=== PATIENT | male | born 1955 | race Caucasian/White ===

== ENCOUNTER → 2017-12-09 09:26 | Outpatient (CLI) | payer OTHER, SELFPAY ==
[2017-12-09 09:39] LABS: Bacteria Urine None Seen; RBC Urine None Seen (0-5/HPF); WBC Urine None Seen (0-5/HPF)
[2017-12-09 10:00] LABS: Add Manual Diff / Slide Review NO; Basophils Percent Auto 1.3 % (0-2); Eosinophils Percent Auto 3.9 % (2-4); Hematocrit 38.1 % (41-53); Hemoglobin 13.2 g/dL (13.5-17.5); Mean Corpuscular HGB Conc 34.7 % (30-36); Mean Corpuscular Hemoglobin 31.9 PG (26-34); Monocytes Percent Auto 7.2 % (3-14); Neutrophils Absolute Auto 6500 /uL (3000-5900); Neutrophils Percent Auto 70.6 % (50-75); Platelet Count 323 X10^3/uL (150-400); Red Blood Cell Count 4.15 X10^6/uL (4.5-5.9); Red Cell Distribution Width 13.4 % (11.6-14.8); White Blood Cell Count 9.2 X10^3/uL (4.5-11.0)
[2017-12-09 10:38] LABS: Alanine Aminotransferase 30 IU/L (21-72); Albumin 4.1 g/dL (3.5-5.0); Albumin Globulin Ratio 1.1 (1.0-2.8); Alkaline Phosphatase 74 U/L (38-126); Aspartate Aminotransferase 34 IU/L (17-59); BUN Creatinine Ratio 31.7 (6-22); Bilirubin Total 0.5 mg/dL (0.2-1.3); Blood Urea Nitrogen 19 mg/dL (9-20); Calcium 9.7 mg/dL (8.4-10.2); Carbon Dioxide 33 mmol/L (22-32); Chloride 98 mmol/L (98-107); Cholesterol 191 mg/dL (140-199); Estimated Glomerular Filt Rate > 60.0 mL/min (>60); Globulin 3.7 g/dL (1.7-4.1); Glucose 93 mg/dL (80-110); HDL Cholesterol 48 mg/dL (40-60); HEMOLYSIS < 15 (0-50); LDL Cholesterol Calculated 131 mg/dL (<100); Potassium 4.7 mmol/L (3.4-5.1); Sodium 139 mmol/L (137-145); Total Protein 7.8 g/dL (6.3-8.2); Triglycerides 61 mg/dL (35-150)
[2017-12-09 10:47] LABS: Appearance Urine UA CLEAR; Bilirubin Urine UA NEGATIVE (NEGATIVE); Color Urine UA YELLOW; Glucose Urine UA NEGATIVE (Normal); Ketones Urine UA NEGATIVE (NEGATIVE); Leukocyte Esterase Urine UA NEGATIVE (NEGATIVE); Nitrite Urine UA Negative (Negative); Occult Blood Urine UA NEGATIVE (Negative); Protein Urine UA NEGATIVE (Negative); Specific Gravity Urine UA 1.015 (1.000-1.035); Urobilinogen Urine UA 0.2 E.U./dL (0.2); pH Urine UA 7.5 (4.5-8.0)
[2017-12-09 10:55] LABS: Amorphous Sediment Urine 2+; Culture Indicated Urine Cult Not Indicated; Free T3, Triiodothyronine Free 3.67 pg/mL (2.77-5.27); Free T4, Direct Thyroxine 1.66 ng/dL (0.78-2.19)
[2017-12-09 11:04] LABS: Prostate Specific Antigen Scrn 1.15 ng/mL (0.1-4.0)
[2017-12-09 11:09] LABS: Thyroid Stimulating Hormone 5.68 uIU/mL (0.47-4.68)
== END ==
PROVIDERS: PCP Family Medicine; Visit Provider Family Medicine
DX: Z51.81 Encounter for therapeutic drug level monitoring (principal); E03.9 Hypothyroidism, unspecified; I10 Essential (primary) hypertension; Z12.5 Encounter for screening for malignant neoplasm of prostate
CPT/HCPCS: 36415; 80053; 80061; 81001; 84439; 84443; 84481; 85025; G0103

== ENCOUNTER → 2017-12-16 10:11 | Outpatient (CLI) | payer OTHER, SELFPAY ==
[2017-12-18 14:47] LABS: Fecal Immunochemical Test NOT DETECTED
== END ==
PROVIDERS: PCP Family Medicine; Visit Provider Family Medicine
DX: Z00.00 Encounter for general adult medical examination without abnormal findings (principal); Z12.11 Encounter for screening for malignant neoplasm of colon
CPT/HCPCS: 82274

== ENCOUNTER → 2018-08-19 08:24 | Outpatient (CLI) | payer OTHER, SELFPAY ==
--- NOTE | 2018-08-19 08:25 | DI.US.S_ITS ---
PROCEDURE: US SCROTUM INDICATIONS: scrotal swelling TECHNIQUE: Real-time scanning was performed of the scrotum and testicles, with image documentation. Color and pulse Doppler interrogation was performed of both testicles. COMPARISON: None. FINDINGS: Right: Testicle is normal in size at 4.5 x 3.1 x 3.4 cm, and homogenous in echotexture. Epididymis is normal in overall size and morphology. No varicoceles. Overlying scrotal skin is normal in thickness. There is a prominent right-sided hydrocele. Left: Testicle is normal in size at 4.6 x 3.0 x 2.2 cm, and homogeneous in echotexture. Epididymis is normal in overall size and morphology. No varicoceles. Overlying scrotal skin is normal in thickness. There is a prominent left-sided hydrocele. Doppler: Color and pulse Doppler demonstrate normal and symmetric arterial flow in both testicles. Other: Incidental note is made of a fat-containing right inguinal hernia. No bowel is seen extending into this hernia. The neck of the hernia measures 1.2 cm. IMPRESSION: 1. Prominent bilateral scrotal hydroceles. 2. No evidence of testicular torsion, testicular mass, or epididymal orchitis. 3. Moderate-sized fat containing right inguinal hernia. Dictated by: Syed Teague M.D. on 08/19/2018 at 9:48 Approved by: Syed Teague M.D. on 08/19/2018 at 9:51
== END ==
PROVIDERS: PCP Family Medicine; Visit Provider Family Medicine
DX: N50.89 Other specified disorders of the male genital organs (principal); K40.90 Unilateral inguinal hernia, without obstruction or gangrene, not specified as recurrent; N43.3 Hydrocele, unspecified
CPT/HCPCS: 76870

== ENCOUNTER 2018-09-09 06:17 | Day surgery (SDC) | payer OTHER, SELFPAY ==
[2018-09-08 07:57] VITALS: BMI 24.3
[2018-09-09] VITALS (11 sets, daily range): BP systolic 110–181; BP diastolic 64–86; PULSE 70–78; RESP 11–20; TEMP 36.7–37.3; O2SAT 94–98; BMI 24.3
[2018-09-09] MEDS: LACTATED RINGERS 1,000 ML 42 ML IV (07:39)
[2018-09-09] MEDS: MIDAZOLAM 2 MG/2 ML VIAL IV (07:39)
--- NOTE | 2018-09-09 07:41 | PM.PREOP ---
Pre-operative Note Interval Note History & Physical reviewed/Exam performed by Physician: Yes Changes to H&P: No H&P completed within 30 days and has changed as indicated here:: Patient seen and examined in the preoperative area. Marked accordingly for surgery. Proceed today with open right inguinal hernia repair and repair of hydrocele as planned. History physical examination has not changed from August 27, 2018.
[2018-09-09] MEDS: CLINDAMYCIN 900 MG/50 ML PIGGYBACK 50 MG IV (07:43)
--- NOTE | 2018-09-09 08:11 | SUR.OPER ---
Supine on padded OR bed, head on pillow, arms secured on padded arm boards at <90 degrees abduction, legs uncrossed, safety belt at thigh, tape over blanket over lower legs.
[2018-09-09] MEDS: BUPIVACAINE 0.5% (PF) VIAL 30 ML INJ (08:23)
[2018-09-09] MEDS: LIDOCAINE 1% W/EPI INJ 20 ML INJ (08:23)
[2018-09-09] MEDS: CEFAZOLIN 1 GM VIAL IV (08:28)
[2018-09-09] MEDS: fentaNYL 100 MCG/2 ML INJ 50 MCG IV ×2 (09:55→10:08)
[2018-09-09] MEDS: HYDROMORPHONE 2 MG INJ 0.25 MG IV ×5 (10:00→10:20)
[2018-09-09] MEDS: OXYCODONE IR 5 MG TABLET PO ×2 (10:20→10:52)
--- NOTE | 2018-09-09 11:39 | SUR.PHASEII ---
PT EXPERIENCING NUMBNESS AND WEAKNESS IN HIS RIGHT LEG, DR YOUNG IS AWARE OF THIS AND STATES THIS IS NORMAL AND DUE TO THE LOCAL ANESTHETIC, PT INSTRUCTED TO USE ASSISTANCE WITH AMBULATION AND MOVING. PT STATING HE HAS HELP AND ASSISTANCE AT HOME. D/C INSTRUCTIONS REVIEWED WITH PT AND HIS SISTER WITH VERBALIZED UNDERSTANDING.
--- NOTE | 2018-09-09 11:55 | PM.OP.1 ---
Operative Date/Time/Diagnoses Date of procedure: 09/09/18 Time of procedure: 11:56 Pre-op diagnosis: Symptomatic right inguinal hernia and right noncommunicating hydrocele Post-op diagnosis: same Procedure & Clinicians Procedure: 1. Open repair of right indirect inguinal hernia with mesh 2. Open repair of right noncommunicating hydrocele Same procedure as scheduled: Yes Indications: 63-year-old male who presented with painful right inguinal mass in conjunction with significant fluid surrounding the right testicle. Examination and evaluation were consistent with hydrocele and hernia. Open repair was recommended. Surgeon: Nikko Arambula Click Yes if Unassisted: Yes Anesthesia Type: General Operative Notes Findings: 1. Moderate-sized right indirect inguinal hernia 2. No evidence of right direct hernia 3. Intact ilioinguinal nerve throughout the case 4. Noncommunicating large hydrocele right testicle 5. Testicles in descended position in the scrotum bilaterally at the conclusion of the case Closure Type: primary Specimen(s): none sent Prosthetic devices, grafts, tissues, transplants, or devices: Small polypropylene Pro Loop mesh plug and onlay patch right inguinal canal Applied: other (Mesh as above) Estimated Blood Loss (mL): 25 Blood products transfused: none Procedure in detail: After obtaining informed consent the patient was brought to the operating room placed supine on the table. After satisfactory induction of anesthesia the genitalia and abdomen were prepped and draped in usual sterile fashion. SCOAP time out was performed per standard protocol. Transverse inguinal incision was designed along the lower aspect of the inguinal canal for distance of approximately 6 cm in order to accommodate for repair of the hydrocele as well. Area was infiltrated with a 1-1 mixture 1% lidocaine with 1:100,000 epinephrine and 0.5% plain Marcaine for postoperative analgesia. Skin incision was created with 10 scalpel blade followed by the Bovie for hemostasis. Superficial epigastric vessels were clamped between hemostats, divided with Metzenbaum scissors, and secured with 3 0 Vicryl suture. Dissection proceeded down through the subcutaneous tissue to the external oblique fascia using the Bovie. A Weitlaner retractor was used to provide exposure. External oblique fascia was divided in the direction of its fibers with 15 scalpel blade followed by Metzenbaum scissors to the external inguinal ring. Edges of the fascia were secured with hemostats and elevated into the operative field. Again, the ilioinguinal nerve was identified and preserved. Blunt dissection revealed the iliopubic tract, conjoined tendon, and rectus fascia. Blunt dissection with the surgeon's fingers was then employed to elevate the spermatic cord into the operative field followed by a Dayday drain to stabilize the cord. Meticulous blunt dissection using DeBakey forceps was used to skeletonize the spermatic cord. Findings are as above. Hernia sac was opened between hemostats and noted to be empty. Sac was then opened to its apex, clamped with hemostats, ligated with Metzenbaum scissors, and secured with a 2 0 Vicryl suture ligature. Sac was then allowed to reduced easily back into the abdominal cavity. Attention was then turned to repair of the hydrocele. Meticulous blunt sharp dissection along significant connective tissue and adhesions at the external inguinal ring eventually allowed for delivery of the hydrocele and right testicle into the operative field. Great care was taken avoid injury to the testicle as well as spermatic cord structures including vessels. In order to deliver the testicle into the operative field the hydrocele actually had to be decompressed using a 10 cc syringe and 18 gauge blunt needle. Once the hydrocele had been adequately decompressed the testicle was delivered and the hydrocele was opened at its apex between hemostats. All fluid was evacuated. Fluid was clear. The sac was then dissected from its connections to the testicle using the Bovie. Tissue was discarded. Great care was taken to avoid disruption of the gubernaculum. The tunic albuginea was also left unviolated. Edges of the hydrocele sac were then oversewn with running 3 0 Vicryl suture. Hemostasis was verified. Again, great care was taken to avoid injury to the vas deferens and spermatic cord structures. Testicle was noted to be viable without evidence of any significant edema or ischemia. Again, its attachment to the gubernaculum remained intact. Testicle was then carefully replaced into the scrotum meticulously so that there was no torsion of the cord or the testicle itself. At this point mesh was brought onto the operative field and soaked in Ancef solution. Mesh plug was placed into the internal inguinal ring then secured with interrupted 2 0 Vicryl suture to adjacent connective tissue. Onlay patch was placed over the floor the inguinal canal secured with circumferential interrupted 0 Ethibond suture. Anteriorly the mesh was secured to the conjoined tendon while laterally was secured to the iliopubic tract. Medially the mesh was secured to the rectus fascia. Tails of the mesh were brought around the spermatic cord and placed deep to the external oblique fascia. Tails were secured with a single 0 Ethibond suture. Great care was taken to avoid strangulation of the cord structures. Wound was irrigated and noted to be hemostatic. Spermatic cord was replaced back into its usual anatomic position and the external oblique fascia was closed over the cord with a running 3 0 Vicryl suture. Subcutaneous tissue was reapproximated with interrupted 2 0 Vicryl suture. Skin was closed in a running subcuticular fashion with 4 0 Monocryl suture. Dermal adhesive was applied the skin. Anesthesia was reversed and patient extubated in the operating room. Again, testicles were noted to be in normal descended position bilaterally at the conclusion of the case. Patient taken recovery stable condition. Complications: none Condition: stable Disposition: PACU Plan for aftercare: 1. Discharge home 2. Follow up in surgery Clinic in 2 weeks
== END 2018-09-09 11:30 | disposition home or self-care (01) ==
PROVIDERS: PCP Family Medicine; Visit Provider Surgery
PROC: (CPT 49505; principal; 2018-09-09 07:45)
DX: K40.90 Unilateral inguinal hernia, without obstruction or gangrene, not specified as recurrent (principal); N43.3 Hydrocele, unspecified; I10 Essential (primary) hypertension; E78.5 Hyperlipidemia, unspecified; E03.9 Hypothyroidism, unspecified
CPT/HCPCS: 49505; 55040; C1781; J0690; J1100; J1170; J2250; J2405; J2704; J3010

== ENCOUNTER → 2019-03-16 09:04 | Outpatient (CLI) | payer OTHER, SELFPAY ==
[2019-03-16 09:55] LABS: Add Manual Diff / Slide Review NO; Basophils Absolute Auto 100 /uL (0-100); Eosinophils Absolute Auto 400 /uL (0-450); Eosinophils Percent Auto 3.2 % (2-4); Hematocrit 41.3 % (41-53); Lymphocytes Absolute Auto 1600 /uL (1100-4500); Mean Corpuscular HGB Conc 33.9 % (30-36); Mean Corpuscular Hemoglobin 30.5 PG (26-34); Mean Corpuscular Volume 89.9 fL (80-100); Monocytes Absolute Auto 800 /uL (0-900); Monocytes Percent Auto 7.3 % (3-14); Neutrophils Absolute Auto 8000 /uL (1500-7000); Neutrophils Percent Auto 73.5 % (50-75); Platelet Count 507 X10^3/uL (150-400); Red Cell Distribution Width 14.5 % (11.6-14.8); White Blood Cell Count 10.9 X10^3/uL (4.5-11.0)
[2019-03-16 10:27] LABS: Alanine Aminotransferase 13 IU/L (21-72); Albumin 4.4 g/dL (3.5-5.0); Albumin Globulin Ratio 1.2 (1.0-2.8); Alkaline Phosphatase 80 U/L (38-126); Aspartate Aminotransferase 28 IU/L (17-59); Bilirubin Total 0.6 mg/dL (0.2-1.3); Blood Urea Nitrogen 12 mg/dL (9-20); Calcium 10.3 mg/dL (8.4-10.2); Carbon Dioxide 33 mmol/L (22-32); Chloride 97 mmol/L (98-107); Cholesterol 209 mg/dL (140-199); Estimated Glomerular Filt Rate > 60.0 mL/min (>60); Globulin 3.8 g/dL (1.7-4.1); Glucose 99 mg/dL (80-110); HDL Cholesterol 40 mg/dL (40-60); HEMOLYSIS < 15 (0-50); LDL Cholesterol Calculated 150 mg/dL (<100); Potassium 4.6 mmol/L (3.4-5.1); Sodium 139 mmol/L (137-145); Total Protein 8.2 g/dL (6.3-8.2); Triglycerides 97 mg/dL (35-150)
[2019-03-16 10:51] LABS: Prostate Specific Antigen Scrn 0.858 ng/mL (0.1-4.0)
[2019-03-16 11:18] LABS: Free T4, Direct Thyroxine 1.59 ng/dL (0.78-2.19)
== END ==
PROVIDERS: PCP Family Medicine; Visit Provider Family Medicine
DX: E03.9 Hypothyroidism, unspecified (principal); E78.5 Hyperlipidemia, unspecified; Z12.5 Encounter for screening for malignant neoplasm of prostate
CPT/HCPCS: 36415; 80053; 80061; 84439; 84443; 84481; 85025; G0103

== ENCOUNTER → 2019-09-01 10:36 | Outpatient (CLI) | payer OTHER, SELFPAY ==
--- NOTE | 2019-09-01 10:41 | DI.RAD.S_ITS ---
PROCEDURE: XR CHEST 2V INDICATIONS: cough with hemoptysis TECHNIQUE: 2 views of the chest were acquired. COMPARISON: None. FINDINGS: Surgical changes and devices: None. Lungs and pleura: Lungs are abnormal, with a bilateral patchy pneumonia pattern. In addition there is abnormal increased radiodensity superimposed on the thoracic spine on the lateral view in the area of the superior segment left lower lobe when correlated with the frontal projection. On the frontal view this is superimposed upon the left hilum. No pleural effusions or pneumothorax. Mediastinum: Mediastinal contours are normal. Heart size is normal. Bones and chest wall: No suspicious bony abnormalities. Soft tissues appear unremarkable. IMPRESSION: Bilateral patchy pneumonia pattern, most prominent at the lung bases. Additionally, focal radiodensity is seen superimposed on the left hilum, at the superior segment left lower lobe area. On the lateral view this has a masslike appearance. Contrast enhanced CT scanning may be warranted at this time. Dictated by: Edgar Ziegler M.D. on 09/01/2019 at 12:16 Approved by: Edgar Ziegler M.D. on 09/01/2019 at 12:16
[2019-09-01 12:17] LABS: Hematocrit 32.9 % (41-53); Hemoglobin 10.7 g/dL (13.5-17.5); Mean Corpuscular HGB Conc 32.4 % (30-36); Mean Corpuscular Volume 86.5 fL (80-100); Platelet Count 670 X10^3/uL (150-400); Red Blood Cell Count 3.81 X10^6/uL (4.5-5.9); Red Cell Distribution Width 15.1 % (11.6-14.8)
[2019-09-01 12:33] LABS: White Blood Cell Count 32.6 X10^3/uL (4.5-11.0)
[2019-09-01 12:36] LABS: Add Manual Diff / Slide Review YES
[2019-09-01 12:39] LABS: Neutrophils Absolute Manual 31622 /uL (3000-5900); RBC Morphology Normal Morphology; Total Cells Counted 100
[2019-09-01 12:50] LABS: Alanine Aminotransferase 12 IU/L (<50); Albumin 3.5 g/dL (3.5-5.0); Albumin Globulin Ratio 1.1 (1.0-2.8); Alkaline Phosphatase 94 U/L (38-126); Aspartate Aminotransferase 23 IU/L (17-59); BUN Creatinine Ratio 22.5 (6-22); Bilirubin Total 0.4 mg/dL (0.2-1.3); Blood Urea Nitrogen 18 mg/dL (9-20); Calcium 9.8 mg/dL (8.4-10.2); Carbon Dioxide 27 mmol/L (22-32); Chloride 86 mmol/L (98-107); Estimated Glomerular Filt Rate > 60.0 mL/min (>60); Globulin 3.3 g/dL (1.7-4.1); Glucose 94 mg/dL (80-110); HEMOLYSIS < 15 (0-50); Sodium 126 mmol/L (137-145); Total Protein 6.8 g/dL (6.3-8.2)
[2019-09-01 12:56] LABS: Potassium 5.4 mmol/L (3.4-5.1)
[2019-09-01 14:02] LABS: Free T4, Direct Thyroxine 1.33 ng/dL (0.78-2.19)
== END ==
DX: J18.9 Pneumonia, unspecified organism (principal); E03.9 Hypothyroidism, unspecified
CPT/HCPCS: 36415; 71046; 80053; 84439; 84443; 85025

== ENCOUNTER 2019-09-01 14:25 | Emergency (ER) | payer OTHER, SELFPAY ==
[2019-09-01 14:46] VITALS: BP 106/54; PULSE 81; RESP 20; TEMP 37.1; O2SAT 82; BMI 23.8
[2019-09-01 15:36] LABS: Add Manual Diff / Slide Review NO; Basophils Absolute Auto 200 /uL (0-100); Basophils Percent Auto 0.6 % (0-2); Eosinophils Absolute Auto 0 /uL (0-450); Hematocrit 29.8 % (41-53); Hemoglobin 9.8 g/dL (13.5-17.5); Lymphocytes Absolute Auto 700 /uL (1100-4500); Lymphocytes Percent Auto 2.6 % (25-40); Mean Corpuscular Hemoglobin 28.5 PG (26-34); Mean Corpuscular Volume 86.3 fL (80-100); Monocytes Absolute Auto 700 /uL (0-900); Monocytes Percent Auto 2.5 % (3-14); Neutrophils Absolute Auto 25900 /uL (1500-7000); Neutrophils Percent Auto 94.3 % (50-75); Platelet Count 570 X10^3/uL (150-400); Red Blood Cell Count 3.46 X10^6/uL (4.5-5.9); White Blood Cell Count 27.5 X10^3/uL (4.5-11.0)
--- NOTE | 2019-09-01 15:42 | ED_ITS ---
HPI - SOB/Dyspnea General Chief Complaint: Shortness of Breath/Dyspnea Stated Complaint: Needs fluids Time Seen by Provider: 09/01/19 15:42 Source: patient Mode of arrival: Ambulatory Limitations: no limitations History of Present Illness HPI Narrative: 64-year-old male comes to the emergency department with complaint of not feeling well for several days. Patient states that he has coughed up a little bit of blood and he has been a little short of breath. He does not had fevers. Patient denies any nasal congestion. He states that he has a very dry mouth and has difficulty swallowing. 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 Patient states that he alonso s have a history of hypertension states he maybe had 1 history of AFib many years ago after his surgery but no known cardiac history. He states his cancer treatment has been completed. Patient states that he had coughed up some ?gross looking stuff as well as a little bit of blood?. He denies any abdominal pain. He does have discomfort epigastrically. He has had some occasional nausea none today. No diarrhea or constipation. He denies any urinary issues and he denies any swelling in his extremities. Patient states that he is on medication for hypothyroidism and states that he also is on chronic pain medication. Related Data Home Medications Medication Instructions Recorded Confirmed acyclovir 400 mg tablet 400 mg PO DAILY tab 08/27/18 09/01/19 prednisolone acetate 0.12 % eye 1 drp EYE-LEFT DIRECTED ml 08/27/18 09/01/19 drops,suspension hydroxyzine pamoate 1 tab PO SEE INSTRUCTIONS 09/08/18 09/01/19 aspirin 81 mg PO DAILY 09/09/18 09/01/19 oxycodone 10 mg tablet 10 mg PO Q6H tab 03/25/19 09/01/19 Multivitamin For Men 1 tab PO DAILY 09/01/19 09/01/19 amlodipine [Norvasc] 5 mg PO DAILY 09/01/19 09/01/19 calcium carbonate [Calcium 600] 600 mg PO DAILY 09/01/19 09/01/19 lisinopril 40 mg PO DAILY 09/01/19 09/01/19 oxycodone [OxyContin] 20 mg PO Q8H 09/01/19 09/01/19 pramipexole [Mirapex] 0.5 mg PO BEDTIME 09/01/19 09/01/19 Previous Rx's Medication Instructions Recorded levothyroxine 200 mcg tablet 200 mcg PO QAM #90 tab 03/25/19 levothyroxine 25 mcg tablet 25 mcg PO QAM #90 tab 03/25/19 azithromycin 250 mg tablet See Rx Instructions PO .COMPLEX #6 09/01/19 tab benzonatate 100 mg capsule 100 mg PO BID-TID PRN #30 cap 09/01/19 Allergies Allergy/AdvReac Type Severity Reaction Status Date / Time Penicillins AdvReac Severe NAUSEA/VOMI Verified 09/01/19 16:07 TING Review of Systems Review of Systems ROS Unobtainable: All systems reviewed & are unremarkable except as noted in HPI and below Patient History Medical History Alcohol abuse, in remission (Acute) Anxiety (Acute) Arthritis (Acute) Cancer (Resolved ~2008) Former smoker (Acute) GERD (gastroesophageal reflux disease) (Chronic Unknown) Hepatitis C (Resolved 1988) Hyperlipemia (Chronic Unknown) Hypertension (Chronic Unknown) Hypothyroidism (Chronic Unknown) Knee pain (Acute) Osteoarthritis (Chronic Unknown) Shoulder pain, right (Chronic Unknown) Surgical History History of arthroplasty of left knee (Acute 08/24/16) History of hip replacement (Deleted) History of tonsillectomy (Resolved Unknown) History of total right hip arthroplasty (Acute 12/26/95) Hx of elbow surgery (Acute) S/P left knee arthroscopy (Deleted Unknown) S/P revision of total knee (Deleted Unknown) Social History household members: none occupational status: previously employed Smoking Status: Former smoker alcohol intake: former substance use type: does not use Smoking Status: Former smoker alcohol intake frequency: holidays/special occasions only Substance Use Type: does not use Exam Narrative Exam Narrative: GEN: Then elderly male older than his stated age, alert and oriented x 3, patient appears to be in mild distress. HEENT: Atraumatic, pupils are equal round reactive to light, extraocular movements are intact, nares are clear, TMs are clear with no fluid, there is no conjunctival pallor. Throat is clear without any exudates, erythema, tonsillar enlargement or uvular deviation noted. HEART: Regular rate and rhythm without murmur, clicks, rubs. Pulses are equal in upper and lower extremities LUNGS:Lungs coarse bilateral, no wheezes, rales, crackles, chest moves symmetrically, mild tachypnea. ABD:bowel sounds normal, soft, non-tender, nondistended, no guarding, rebound, rigidity, no masses noted, no hepatosplenomegaly :No CVA tenderness. MSCL: Non-tender, no muscle atrophy, muscles strength 5/5 upper and lower extremities, full range of motion NEURO:CN 2-12 intact, sensation normal. SKIN: pale, no erythema. Initial Vital Signs Initial Vital Signs: Vital Signs Temperature 98.8 F 09/01/19 14:46 Pulse Rate 81 09/01/19 14:46 Respiratory Rate 20 09/01/19 14:46 Blood Pressure 106/54 L 09/01/19 14:46 Pulse Oximetry 82 L 09/01/19 14:46 Scores PERC Score Age greater than or equal to 50 years: Yes Heart rate greater than or equal to 100 bpm: No Room Air O2 Sat less than 95%: Yes Unilateral leg swelling: No Recent trauma or surgery: No Hemoptysis: Yes Prior PE or DVT: No Hormone Use: No Total PERC Score: 3 Course Orders Ordered: ED Orders 09/01/19 15:12 EKG-12 Lead Stat Measure peak expiratory flow ONCE RT Consult Eval and Treat Now 09/01/19 15:25 Blood Culture Stat Complete Blood Count AUTO DIFF Stat Comprehensive Metabolic Panel Stat Lactate (Lactic Acid) Stat NT-proBNP (BNP-Adult 18+) Stat Procalcitonin Stat Troponin & CK Cardiac Panel Stat 09/01/19 16:01 CT angio chest PE protocol Stat Discontinued Medications Albuterol/Ipratropium (Duoneb) 3 ml INH NOW ONE Stop: 09/01/19 16:07 Last Admin: 09/01/19 16:09 Dose: 3 ml Documented by: SOPHIA Hydromorphone HCl (Dilaudid) 1 mg IV NOW ONE Stop: 09/01/19 18:30 Last Admin: 09/01/19 19:12 Dose: 1 mg Documented by: TRINI Vancomycin HCl/Dextrose (Vancomycin) 1,500 mg in 300 mls @ 200 mls/hr IV NOW ONE Stop: 09/01/19 18:47 Last Admin: 09/01/19 19:12 Dose: Not Given Documented by: TRINI Vital Signs Vital signs: Vital Signs - 8 hr 09/01/19 14:46 09/01/19 16:53 09/01/19 18:30 Temperature 98.8 F Pulse Rate 81 67 76 Respiratory Rate 20 22 Blood Pressure 106/54 L Blood Pressure [Left Arm] 130/63 Pulse Oximetry 82 L 90 L 92 MDM - SOB/Dyspnea Lab Data Attestation: I reviewed the patient's lab results. Result diagrams: 09/01/19 15:25 09/01/19 15:25 Labs: Lab Results 09/01/19 09/01/19 09/01/19 Range/Units 15:25 15:25 15:25 WBC 27.5 H (4.5-11.0) X10^3/uL RBC 3.46 L (4.5-5.9) X10^6/uL Hgb 9.8 L (13.5-17.5) g/dL Hct 29.8 L (41-53) % MCV 86.3 (80-100) fL MCH 28.5 (26-34) PG MCHC 33.0 (30-36) % RDW 15.0 H (11.6-14.8) % Plt Count 570 H (150-400) X10^3/uL Neut % (Auto) 94.3 H (50-75) % Lymph % (Auto) 2.6 L (25-40) % Ford % (Auto) 2.5 L (3-14) % Eos % (Auto) 0.0 L (2-4) % Baso % (Auto) 0.6 (0-2) % Neut # (Auto) 50195 H (6851-0506) /uL Lymph # (Auto) 700 L (8558-2714) /uL Ford # (Auto) 700 (0-900) /uL Eos # (Auto) 0 (0-450) /uL Baso # (Auto) 200 H (0-100) /uL Sodium 128 L (137-145) mmol/L Potassium 5.0 (3.4-5.1) mmol/L Chloride 86 L (98-107) mmol/L Carbon Dioxide 31 (22-32) mmol/L BUN 20 (9-20) mg/dL Creatinine 0.90 (0.66-1.25) mg/dL Estimated GFR > 60.0 (>60) mL/min BUN/Creatinine Ratio 22.2 H (6-22) Glucose 108 (80-110) mg/dL Lactate (0.7-2.1) mmol/L Calcium 9.7 (8.4-10.2) mg/dL Total Bilirubin 0.4 (0.2-1.3) mg/dL AST 25 (17-59) IU/L ALT 13 (<50) IU/L Alkaline Phosphatase 90 (38-126) U/L Total Creatine Kinase (55-170) U/L CK-MB (CK-2) CK-MB (CK-2) Rel Index Troponin I (0.01-0.034) ng/mL NT-Pro-B Natriuret Pep 1510 H (<125) pg/mL Total Protein 7.1 (6.3-8.2) g/dL Albumin 3.6 (3.5-5.0) g/dL Globulin 3.5 (1.7-4.1) g/dL Albumin/Globulin Ratio 1.0 (1.0-2.8) Procalcitonin (<0.5) ng/mL 09/01/19 09/01/19 09/01/19 Range/Units 15:25 15:25 15:25 WBC (4.5-11.0) X10^3/uL RBC (4.5-5.9) X10^6/uL Hgb (13.5-17.5) g/dL Hct (41-53) % MCV (80-100) fL MCH (26-34) PG MCHC (30-36) % RDW (11.6-14.8) % Plt Count (150-400) X10^3/uL Neut % (Auto) (50-75) % Lymph % (Auto) (25-40) % Ford % (Auto) (3-14) % Eos % (Auto) (2-4) % Baso % (Auto) (0-2) % Neut # (Auto) (8024-1411) /uL Lymph # (Auto) (2726-0832) /uL Ford # (Auto) (0-900) /uL Eos # (Auto) (0-450) /uL Baso # (Auto) (0-100) /uL Sodium (137-145) mmol/L Potassium (3.4-5.1) mmol/L Chloride (98-107) mmol/L Carbon Dioxide (22-32) mmol/L BUN (9-20) mg/dL Creatinine (0.66-1.25) mg/dL Estimated GFR (>60) mL/min BUN/Creatinine Ratio (6-22) Glucose (80-110) mg/dL Lactate 1.6 (0.7-2.1) mmol/L Calcium (8.4-10.2) mg/dL Total Bilirubin (0.2-1.3) mg/dL AST (17-59) IU/L ALT (<50) IU/L Alkaline Phosphatase (38-126) U/L Total Creatine Kinase 74 (55-170) U/L CK-MB (CK-2) TNP CK-MB (CK-2) Rel Index TNP Troponin I 0.014 (0.01-0.034) ng/mL NT-Pro-B Natriuret Pep (<125) pg/mL Total Protein (6.3-8.2) g/dL Albumin (3.5-5.0) g/dL Globulin (1.7-4.1) g/dL Albumin/Globulin Ratio (1.0-2.8) Procalcitonin 0.86 H (<0.5) ng/mL Imaging Data Chest x-ray: Radiologist's Impression: [address] [address] XRay Report Signed Patient: Moise Diop [facility]#: [id number] : 3Acct:[id number] Age/Sex: 64 / MDate of Service: 09/01/19 Loc: LAB Accession Number: [id number] Procedure: XR chest 2V Ordering Provider: Bassam Ramachandran PROCEDURE: XR CHEST 2V INDICATIONS: cough with hemoptysis TECHNIQUE: 2 views of the chest were acquired. COMPARISON: None. FINDINGS: Surgical changes and devices: None. Lungs and pleura: Lungs are abnormal, with a bilateral patchy pneumonia pattern . In addition there is abnormal increased radiodensity superimposed on the thoracic spine on the lateral view in the area of the superior segment left lower lobe when correlated with the frontal projection. On the frontal view this is superimposed upon the left hilum. No pleural effusions or pneumothorax. Mediastinum: Mediastinal contours are normal. Heart size is normal. Bones and chest wall: No suspicious bony abnormalities. Soft tissues appear unremarkable. IMPRESSION: Bilateral patchy pneumonia pattern, most prominent at the lung bases. Additionally, focal radiodensity is seen superimposed on the left hilum, at the superior segment left lower lobe area. On the lateral view this has a masslike appearance. Contrast enhanced CT scanning may be warranted at this time. Dictated by: Edgar Ziegler M.D. on 09/01/2019 at 12:16 Approved by: Edgar Ziegler M.D. on 09/01/2019 at 12:16 CT scan - chest: Radiologist's Impression: [address] [address] [address] Scan Report Signed Patient: Moise Diop [facility]#: [id number] : 3Acct:[id number] Age/Sex: 64 / MDate of Service: 09/01/19 Loc: ED Accession Number: [id number] Procedure: CT angio chest PE protocol Ordering Provider: Altagracia Humphrey D.O. PROCEDURE: CT ANGIO CHEST PE PROTOCOL INDICATIONS: ? pna vs ca vs. pe TECHNIQUE: After the administration of intravenous contrast, 2 mm thick sections acquired from the pulmonary apices to the posterior costophrenic angles. 3-dimensional maximum intensity projection (MIP) coronal and sagittal reformats were then acquired through the thorax. For radiation dose reduction, the following was used: automated exposure control, adjustment of mA and/or kV according to patient size. COMPARISON: [facility], CR, XR CHEST 2V, 09/01/2019, 11:05. FINDINGS: Image quality: Excellent. Pulmonary arteries: Pulmonary arteries are normal in size, and demonstrate no intraluminal filling defects to suggest central pulmonary embolism. Lungs and pleura: The the lungs are abnormal, with what appears to be severe emphysematous change predominantly centrilobular in type. There is a patchy alveolar infiltration pattern over the lungs, becoming more confluent at the lung bases, and within the lower lobes bilaterally nodules including a cavitary nodule on the right range in size from several millimeters to 2 cm. In addition, there is a cavitary mass at the medial left upper lobe, with air fluid level (series 4 image 71) this soft tissue prominence along the periphery of this mass that invades into the adjacent left hilum and the posterior and middle mediastinum. The combined mass in this area is estimated to measure approximately 10 cm oblique AP, 5 cm transverse and to extend over a craniocaudad length of approximately 15 cm. There is a small associated pleural effusion posteriorly which appears exudative. Mediastinum: Heart size is normal, without pericardial effusion. No mediastinal or hilar adenopathy. Thoracic aorta is normal in caliber and enhancement. Esophagus is normal in caliber, without hiatal hernia. Bones and chest wall: No suspicious bony lesions. Ribs and thoracic spine appear intact throughout. Thyroid gland appears normal where well seen.. No axillary or supraclavicular adenopathy. Abdomen: Visualized upper abdominal solid organs appear normal in the early arterial phase of enhancement. IMPRESSION: 1. Severe emphysematous change, presumed long-standing smoking history. Next 2. No pulmonary embolus found. 3. Multifocal malignancy appears present with a confluent cavitary lung mass invading directly into the left hilum and mediastinum. Additionally, multiple lung base nodules are present including a cavitary nodule at the right lower lung. 4. Patchy airspace disease is present, confluent at the lung bases, and this may represent a manifestation of lymphangitic spread of tumor. 5. Small exudative left pleural effusion posteriorly. Dictated by: Edgar Ziegler M.D. on 09/01/2019 at 16:37 Approved by: Edgar Ziegler M.D. on 09/01/2019 at 16:46 ECG Data Attestation: I personally reviewed and interpreted this ECG as follows: Interpretation: Sinus rhythm rate of 68 P are 116 QRS of 90 with a QTC of 374. Patient has mortician artifact in the 1st [address] changes appreciated. MDM Narrative Medical decision making narrative: Patient's labs initial chest x-ray support pneumonia but he also has some masslike effect with a prior cancer history patient states that he is cancer free but he is quite suspicious and his O2 is significantly low in the mid 80s. Patient Um and I discussed I would like it is CT angiography to rule out PE and also to get a better view of the masses in his chest. Patient had outpatient labs show white count 27 32 this morning he has hemoglobin is 9.8 with platelets of 570 and a left shift. Chemistry shows a so dium 128, potassium of 5 and chloride 86 with normal renal function, lactate and LFTs do not show major change. BNP was 1510 with no prior comparison. Troponin and procalcitonin were also included in patient has a TSH room earlier this morning that was 11.8 but a free T4 of 1.35. No acute EKG changes are noted although lead 1 to have motion artifact. Patient is on high-flow O2 received DuoNeb and on recheck patient has minimal improvement. Patient's CT shows a large cavitary lesion with invasion into the hilum and mediastinum with extensive nodules andUm multi focal malignancy there is also patchy airspace disease that could be lymphangitic spread of the tumor and small exudate of left pleural effusion. Patient's case was discussed with Dr. Patterson who feels patient would benefit from being admitted to [facility] having potentially biopsy at least being set up with home O2 and being seen by Oncology. Patient is adamant that he wishes to return home contemplate his options and then decide if he wants further treatment. We discussed that I can't send him up with home O2 this evening but primary care can help him with this tomorrow. Dr. Nava and I also discussed the case and he will pass along the patient's primary care team so they can reach out to the patient and help to set this up. Patient states he will contact Oncology for follow-up as he sees fit. We did discuss he can return at any time for admission if he changes his mind. Patient's was started on a Zithromax mycin by his primary care team he does potentially have some overlying infection in that area we discussed that is not likely the most helpful antibiotic but he does not wish to change anything at this time. Discharge Plan Departure Patient Disposition: Home Clinical Impression: Hypoxia, Cavitary lesion of lung, Hemoptysis Lung malignancy Qualifiers: Laterality: left Discharge Date/Time: 09/01/19 19:13 Activity Restrictions/Additional Instructions: Follow up with oncology, call tomorrow for an appointment. You may follow-up with Dr. Patterson or any of the oncologists. I would also recommend following up with your primary care provider they can help set you up with home O2 which may make you feel more comfortable. You may continue antibiotics as prescribed. Continue home medications as prescribed. I would recommend stopping your aspirin as you been coughing up blood and having increased risk of bleeding. You may return to the ER for admission at any time. It is recommended today as you requiring oxygen and your oxygen levels are quite low. We can also set you up for further care and treatment. Prescriptions: No Action oxycodone 10 mg tablet 10 mg PO Q6H RF: 0 azithromycin [Zithromax Z-Rodrigo] 250 mg tablet See Rx Instructions PO .COMPLEX Qty: 6 RF: 0 benzonatate [Tessalon Perles] 100 mg capsule 100 mg PO BID-TID PRN (Reason: cough) Qty: 30 RF: 0 levothyroxine 200 mcg tablet 200 mcg PO QAM Qty: 90 RF: 3 levothyroxine 25 mcg tablet 25 mcg PO QAM Qty: 90 RF: 3 acyclovir 400 mg tablet 400 mg PO DAILY RF: 0 prednisolone acetate 0.12 % drops,suspension 1 drp EYE-LEFT DIRECTED RF: 0 hydroxyzine pamoate 25 mg capsule 1 tab PO SEE INSTRUCTIONS RF: 0 aspirin 81 mg Tablet,Delayed Release (Dr/Ec) 81 mg PO DAILY RF: 0 calcium carbonate [Calcium 600] 600 mg calcium (1,500 mg) Tablet 600 mg PO DAILY RF: 0 oxycodone [OxyContin] 20 mg Tablet,Oral Only,Ext.Rel.12 Hr 20 mg PO Q8H RF: 0 Multivitamin For Men 1 tab PO DAILY RF: 0 amlodipine [Norvasc] 5 mg tablet 5 mg PO DAILY RF: 0 pramipexole [Mirapex] 0.5 mg tablet 0.5 mg PO BEDTIME RF: 0 lisinopril 40 mg tablet 40 mg PO DAILY RF: 0 Referrals: Vini Patterson MD [Physician] - Bassam Ramachandran FNP- [[place] Support Specialist] - Flor Medellin DO [Primary Care Provider] -
[2019-09-01 15:48] LABS: Lactate (Lactic Acid) 1.6 mmol/L (0.7-2.1)
[2019-09-01 15:50] LABS: Alanine Aminotransferase 13 IU/L (<50); Albumin 3.6 g/dL (3.5-5.0); Alkaline Phosphatase 90 U/L (38-126); Aspartate Aminotransferase 25 IU/L (17-59); BUN Creatinine Ratio 22.2 (6-22); Bilirubin Total 0.4 mg/dL (0.2-1.3); Blood Urea Nitrogen 20 mg/dL (9-20); Calcium 9.7 mg/dL (8.4-10.2); Carbon Dioxide 31 mmol/L (22-32); Chloride 86 mmol/L (98-107); Estimated Glomerular Filt Rate > 60.0 mL/min (>60); Globulin 3.5 g/dL (1.7-4.1); Glucose 108 mg/dL (80-110); HEMOLYSIS < 15 (0-50); Sodium 128 mmol/L (137-145); Total Protein 7.1 g/dL (6.3-8.2)
[2019-09-01 15:58] LABS: NT-proBNP (BNP-Adult 18+) 1510 pg/mL (<125)
--- NOTE | 2019-09-01 16:01 | DI.CT.S_ITS ---
PROCEDURE: CT ANGIO CHEST PE PROTOCOL INDICATIONS: ? pna vs ca vs. pe TECHNIQUE: After the administration of intravenous contrast, 2 mm thick sections acquired from the pulmonary apices to the posterior costophrenic angles. 3-dimensional maximum intensity projection (MIP) coronal and sagittal reformats were then acquired through the thorax. For radiation dose reduction, the following was used: automated exposure control, adjustment of mA and/or kV according to patient size. COMPARISON: [facility], CR, XR CHEST 2V, 09/01/2019, 11:05. FINDINGS: Image quality: Excellent. Pulmonary arteries: Pulmonary arteries are normal in size, and demonstrate no intraluminal filling defects to suggest central pulmonary embolism. Lungs and pleura: The the lungs are abnormal, with what appears to be severe emphysematous change predominantly centrilobular in type. There is a patchy alveolar infiltration pattern over the lungs, becoming more confluent at the lung bases, and within the lower lobes bilaterally nodules including a cavitary nodule on the right range in size from several millimeters to 2 cm. In addition, there is a cavitary mass at the medial left upper lobe, with air fluid level (series 4 image 71) this soft tissue prominence along the periphery of this mass that invades into the adjacent left hilum and the posterior and middle mediastinum. The combined mass in this area is estimated to measure approximately 10 cm oblique AP, 5 cm transverse and to extend over a craniocaudad length of approximately 15 cm. There is a small associated pleural effusion posteriorly which appears exudative. Mediastinum: Heart size is normal, without pericardial effusion. No mediastinal or hilar adenopathy. Thoracic aorta is normal in caliber and enhancement. Esophagus is normal in caliber, without hiatal hernia. Bones and chest wall: No suspicious bony lesions. Ribs and thoracic spine appear intact throughout. Thyroid gland appears normal where well seen.. No axillary or supraclavicular adenopathy. Abdomen: Visualized upper abdominal solid organs appear normal in the early arterial phase of enhancement. IMPRESSION: 1. Severe emphysematous change, presumed long-standing smoking history. Next 2. No pulmonary embolus found. 3. Multifocal malignancy appears present with a confluent cavitary lung mass invading directly into the left hilum and mediastinum. Additionally, multiple lung base nodules are present including a cavitary nodule at the right lower lung. 4. Patchy airspace disease is present, confluent at the lung bases, and this may represent a manifestation of lymphangitic spread of tumor. 5. Small exudative left pleural effusion posteriorly. Dictated by: Edgar Ziegler M.D. on 09/01/2019 at 16:37 Approved by: Edgar Ziegler M.D. on 09/01/2019 at 16:46
[2019-09-01] MEDS: ALBUTEROL/IPRATROPIUM 3 ML AMPUL INH (16:09)
[2019-09-01 16:17] LABS: Creatine Kinase 74 U/L (55-170)
[2019-09-01 16:30] LABS: Troponin I 0.014 ng/mL (0.01-0.034)
[2019-09-01 16:50] LABS: Procalcitonin 0.86 ng/mL (<0.5)
[2019-09-01 16:53] VITALS: PULSE 67; O2SAT 90
[2019-09-01] MEDS: HYDROMORPHONE 1 MG INJ (17:17)
[2019-09-01 18:30] VITALS: BP 130/63; PULSE 76; RESP 22; O2SAT 92
[2019-09-01] MEDS: HYDROMORPHONE 1 MG INJ IV (19:12)
== END 2019-09-01 19:13 | disposition home or self-care (01) ==
PROVIDERS: Emergency Provider Emergency Medicine; PCP Family Medicine
DX: R09.02 Hypoxemia (principal); J98.4 Other disorders of lung; R04.2 Hemoptysis; C34.90 Malignant neoplasm of unspecified part of unspecified bronchus or lung
CPT/HCPCS: 36415; 71046; 71275; 80053; 82550; 83605; 83880; 84145; 84439; 84443; 84484; 85025; 87040; 93005; 94640; 96374; 99284; 99285; J1170

== ENCOUNTER 2019-09-04 10:28 | Emergency (ER) | payer OTHER, SELFPAY ==
[2019-09-04] VITALS (12 sets, daily range): BP systolic 113–152; BP diastolic 63–79; PULSE 51–72; RESP 12–30; TEMP 36.4; O2SAT 91–99
--- NOTE | 2019-09-04 10:45 | ED_ITS ---
HPI - Nausea/Vomiting/Diarrhea <Stuart Stephensonan, DO - Last Filed: 09/05/19 07:02> General Chief complaint: Nausea/Vomiting/Diarrhea Stated complaint: can't eat or drink, can't swallow pain meds Time Seen by Provider: 09/04/19 10:30 Source: patient and family Mode of arrival: Wheelchair Limitations: no limitations History of Present Illness HPI Narrative: 64-year-old former smoker with newly diagnosed metastatic lung cancer presents with an inability to swallow liquid, food or any of his pills for about 2 days. He is feeling quite weak and is having extensive pain as he has not been taking his meds or been able tolerate any hydration or oral intake whatsoever. He denies any specific event that would suggest a food bolus and has no history of the same. He was seen here on September 01 with complaints of increasing shortness of breath and hemoptysis and had a CT angiogram of his c hest noting newly discovered lung cancer with a significant amount of hilar and mediastinal lymphadenopathy. Patient is dizzy, weak and lightheaded. 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 He has had multiple episodes of nausea and vomiting. The patient reports that the pain he is complaining of is chronic and includes is posterior pharynx which has been painful ever since his radiation as well as his bilateral hips which have been painful for years. His pain has become out of control as he has not been able to keep any of his chronic pain meds down at home MD complaint: nausea and vomiting Onset (ago): day(s) Description of Vomiting: food contents and watery Description of Diarrhea: none Associated Abdominal Pain: No Location of pain: diffuse Pain Consistency: constant Exacerbating factors: none Associated symptoms: nausea/vomiting Related Data Home Medications Medication Instructions Recorded Confirmed acyclovir 400 mg tablet 400 mg PO DAILY tab 08/27/18 09/04/19 prednisolone acetate 0.12 % eye 1 drp EYE-LEFT DIRECTED ml 08/27/18 09/04/19 drops,suspension hydroxyzine pamoate 1 tab PO SEE INSTRUCTIONS 09/08/18 09/04/19 aspirin 81 mg PO DAILY 09/09/18 09/04/19 oxycodone 10 mg tablet 10 mg PO Q6H tab 03/25/19 09/04/19 Multivitamin For Men 1 tab PO DAILY 09/01/19 09/04/19 amlodipine [Norvasc] 5 mg PO DAILY 09/01/19 09/04/19 calcium carbonate [Calcium 600] 600 mg PO DAILY 09/01/19 09/04/19 lisinopril 40 mg PO DAILY 09/01/19 09/04/19 oxycodone [OxyContin] 20 mg PO Q8H 09/01/19 09/04/19 pramipexole [Mirapex] 0.5 mg PO BEDTIME 09/01/19 09/04/19 Previous Rx's Medication Instructions Recorded levothyroxine 200 mcg tablet 200 mcg PO QAM #90 tab 03/25/19 levothyroxine 25 mcg tablet 25 mcg PO QAM #90 tab 03/25/19 azithromycin 250 mg tablet See Rx Instructions PO .COMPLEX #6 09/01/19 tab benzonatate 100 mg capsule 100 mg PO BID-TID PRN #30 cap 09/01/19 oxygen #1 ea 09/02/19 Allergies Allergy/AdvReac Type Severity Reaction Status Date / Time Penicillins AdvReac Severe NAUSEA/VOMI Verified 09/04/19 10:44 TING Review of Systems <Stuart Cummings, DO - Last Filed: 09/05/19 07:02> Constitutional Constitutional: Denies chills, Denies fatigue, Denies fever(s), Denies frequent falls, Denies lethargy and Reports weakness Eyes Eyes: Denies change in vision, Denies eye discharge, Denies irritation and Denies loss of vision ENT Ears, Nose, Mouth, and Throat: Denies change in voice, Denies dizziness, Denies neck pain, Denies sore throat and Denies throat swelling Cardiovascular Cardiovascular: Denies chest pain, Denies irregular heart rhythm, Denies lightheadedness, Denies palpitations, Denies dyspnea, Denies dyspnea on exertion and Denies orthopnea Respiratory Respiratory: Denies cough, Denies dyspnea, Denies dyspnea on exertion and Denies wheezing Gastrointestinal Gastrointestinal: Denies abdominal pain, Denies change in bowel habits, Denies diarrhea, Denies nausea and Denies vomiting Genitourinary Genitourinary: Denies hematuria, Denies flank pain, Denies urinary incontinence and Denies urinary urgency Musculoskeletal Musculoskeletal: Denies back pain, Denies muscle weakness, Denies neck pain, Denies numbness and Denies tingling Integumentary/Breasts Skin/Breast: Denies pruritus, Denies erythema, Denies rash and Denies wounds Neurologic Neurologic: Denies behavioral changes, Denies confusion, Denies dizziness, Denies frequent falls, Denies loss of vision, Denies numbness, Denies tingling and Reports weakness Psychiatric Psychiatric: Denies anxiety, Denies behavioral changes, Denies confusion, Denies depression, Denies homicidal ideation and Denies suicidal ideation Endocrine Endocrine: Denies fatigue, Denies flushing and Denies palpitations Hematologic/Lymphatic Hematologic/Lymphatic: Denies easy bruising Allergic/Immunologic Allergic/Immunologic: Denies urticaria, Denies throat swelling and Denies wheezing Patient History <Stuart Cummings DO - Last Filed: 09/05/19 07:02> Social History household members: none occupational status: previously employed Smoking Status: Former smoker alcohol intake: former substance use type: does not use Smoking Status: Former smoker alcohol intake frequency: holidays/special occasions only Substance Use Type: does not use Exam <Stuart Cummings DO - Last Filed: 09/05/19 07:02> Narrative Exam Narrative: GENERAL: [64] year old patient appears stated age. Obviously chronically ill and relatively emaciated with temporal wasting HEAD: Atraumatic. Normocephalic. EYES: Pupils equal round and reactive. Extraocular motions intact. No scleral icterus. No injection or drainage. ENT: Dry mucous membranes Nose without bleeding, purulent drainage. Throat without erythema, tonsillar hypertrophy or exudate. Airway patent. NECK: Trachea midline. Non tender CARDIOVASCULAR: Regular rate and rhythm without murmurs, gallops, or rubs. RESPIRATORY: Clear to auscultation. Breath sounds equal bilaterally. No wheezes, rales, or rhonchi. GASTROINTESTINAL: Abdomen soft, non-tender, nondistended. EXTREMITIES: No edema or joint tenderness. BACK: Nontender without deformity or crepitance. No flank tenderness. NEURO: AOx3. SKIN: No rash or erythema of visible areas, speed poor skin turgor Initial Vital Signs Initial Vital Signs: Vital Signs Temperature 97.6 F 09/04/19 10:30 Pulse Rate 67 09/04/19 10:30 Respiratory Rate 30 H 09/04/19 10:30 Blood Pressure 152/79 H 09/04/19 10:30 Pulse Oximetry 92 09/04/19 10:30 <Hernandez Ireland DO - Last Filed: 09/04/19 15:58> Initial Vital Signs Initial Vital Signs: Vital Signs Temperature 97.6 F 09/04/19 10:30 Pulse Rate 67 09/04/19 10:30 Respiratory Rate 30 H 09/04/19 10:30 Blood Pressure 152/79 H 09/04/19 10:30 Pulse Oximetry 92 09/04/19 10:30 Course <Stuart Cummings DO - Last Filed: 09/05/19 07:02> Course Course Narrative: I placed a call to our general surgeon early on in this patient's visit to inquire about the possible of endoscopy here, she states she is not comfortable performing that procedure given the fact that there is no suggestion of a food bolus or pill esophagitis and that this is likely mass effect from lymphadenopathy from the newly discovered lung cancer. She strongly recommends transfer to a facility with Gastroenterology and thoracic surgery and is happy to talk with receiving facility. Call placed to [facility]. Care transferred to Dr. Ireland Orders Ordered: Discontinued Medications Hydromorphone HCl (Dilaudid) 0.5 mg IV NOW ONE Stop: 09/04/19 10:56 Last Admin: 09/04/19 11:08 Dose: 0.5 mg Documented by: USMAN Hydromorphone HCl (Dilaudid) 0.5 mg IV NOW ONE Stop: 09/04/19 11:44 Last Admin: 09/04/19 11:46 Dose: Not Given Documented by: HILARY Hydromorphone HCl (Dilaudid) 0.5 mg IV NOW ONE Stop: 09/04/19 11:48 Last Admin: 09/04/19 11:49 Dose: 0.5 mg Documented by: KSCHERE Hydromorphone HCl (Dilaudid) 0.5 mg IV NOW ONE Stop: 09/04/19 13:13 Last Admin: 09/04/19 14:27 Dose: Not Given Documented by: TOMEKACHERE Hydromorphone HCl (Dilaudid) 0.5 mg IV Q1HR PRN PRN Reason: Pain, Mild (1-3) Last Admin: 09/04/19 17:57 Dose: 0.5 mg Documented by: Admin: 09/04/19 17:09 Dose: 0.5 mg Documented by: MARIA DEL CARMEN Admin: 09/04/19 15:50 Dose: 0.5 mg Documented by: Admin: 09/04/19 14:20 Dose: 0.5 mg Documented by: Admin: 09/04/19 13:24 Dose: 0.5 mg Documented by: DIAMOND Sodium Chloride (Normal Saline 0.9%) 1,000 mls @ 1,000 mls/hr IV BOLUS ONE Stop: 09/04/19 11:54 Last Infusion: 09/04/19 12:13 Dose: 0 mls/hr Documented by: Admin: 09/04/19 11:08 Dose: 1,000 mls/hr Documented by: USMAN Sodium Chloride (Normal Saline 0.9%) 1,000 mls @ 125 mls/hr IV BOLUS ONE Stop: 09/04/19 20:12 Last Infusion: 09/04/19 17:59 Dose: 125 mls/hr Documented by: Admin: 09/04/19 12:17 Dose: 125 mls/hr Documented by: HILARY Ondansetron HCl (Zofran) 4 mg IV NOW ONE Stop: 09/04/19 10:56 Last Admin: 09/04/19 11:08 Dose: 4 mg Documented by: USMAN Vital Signs Vital signs: Vital Signs - 8 hr 09/04/19 10:30 09/04/19 11:00 09/04/19 11:13 Temperature 97.6 F Pulse Rate 67 53 L 56 L Respiratory Rate 30 H 16 18 Blood Pressure 152/79 H Blood Pressure [Right Arm] 132/71 132/71 Pulse Oximetry 92 97 95 09/04/19 11:30 09/04/19 12:00 09/04/19 12:30 Temperature Pulse Rate 61 60 56 L Respiratory Rate 18 18 18 Blood Pressure Blood Pressure [Right Arm] 140/67 129/67 122/63 Pulse Oximetry 98 97 96 09/04/19 13:06 09/04/19 14:00 09/04/19 14:30 Temperature Pulse Rate 55 L 51 L 58 L Respiratory Rate 18 18 18 Blood Pressure Blood Pressure [Right Arm] 121/64 135/67 123/69 Pulse Oximetry 95 99 98 09/04/19 15:30 Temperature Pulse Rate 58 L Respiratory Rate 18 Blood Pressure Blood Pressure [Right Arm] 122/67 Pulse Oximetry 98 <Hernandez Ireland DO - Last Filed: 09/04/19 15:58> Orders Ordered: Discontinued Medications Hydromorphone HCl (Dilaudid) 0.5 mg IV NOW ONE Stop: 09/04/19 10:56 Last Admin: 09/04/19 11:08 Dose: 0.5 mg Documented by: USMAN Hydromorphone HCl (Dilaudid) 0.5 mg IV NOW ONE Stop: 09/04/19 11:44 Last Admin: 09/04/19 11:46 Dose: Not Given Documented by: HILARY Hydromorphone HCl (Dilaudid) 0.5 mg IV NOW ONE Stop: 09/04/19 11:48 Last Admin: 09/04/19 11:49 Dose: 0.5 mg Documented by: HILARY Hydromorphone HCl (Dilaudid) 0.5 mg IV NOW ONE Stop: 09/04/19 13:13 Last Admin: 09/04/19 14:27 Dose: Not Given Documented by: HILARY Hydromorphone HCl (Dilaudid) 0.5 mg IV Q1HR PRN PRN Reason: Pain, Mild (1-3) Last Admin: 09/04/19 17:57 Dose: 0.5 mg Documented by: Admin: 09/04/19 17:09 Dose: 0.5 mg Documented by: MARIA DEL CARMEN Admin: 09/04/19 15:50 Dose: 0.5 mg Documented by: Admin: 09/04/19 14:20 Dose: 0.5 mg Documented by: Admin: 09/04/19 13:24 Dose: 0.5 mg Documented by: DIAMOND Sodium Chloride (Normal Saline 0.9%) 1,000 mls @ 1,000 mls/hr IV BOLUS ONE Stop: 09/04/19 11:54 Last Infusion: 09/04/19 12:13 Dose: 0 mls/hr Documented by: Admin: 09/04/19 11:08 Dose: 1,000 mls/hr Documented by: USMAN Sodium Chloride (Normal Saline 0.9%) 1,000 mls @ 125 mls/hr IV BOLUS ONE Stop: 09/04/19 20:12 Last Infusion: 09/04/19 17:59 Dose: 125 mls/hr Documented by: Admin: 09/04/19 12:17 Dose: 125 mls/hr Documented by: HILARY Ondansetron HCl (Zofran) 4 mg IV NOW ONE Stop: 09/04/19 10:56 Last Admin: 09/04/19 11:08 Dose: 4 mg Documented by: USMAN Vital Signs Vital signs: Vital Signs - 8 hr 09/04/19 10:30 09/04/19 11:00 09/04/19 11:13 Temperature 97.6 F Pulse Rate 67 53 L 56 L Respiratory Rate 30 H 16 18 Blood Pressure 152/79 H Blood Pressure [Right Arm] 132/71 132/71 Pulse Oximetry 92 97 95 09/04/19 11:30 09/04/19 12:00 09/04/19 12:30 Temperature Pulse Rate 61 60 56 L Respiratory Rate 18 18 18 Blood Pressure Blood Pressure [Right Arm] 140/67 129/67 122/63 Pulse Oximetry 98 97 96 09/04/19 13:06 09/04/19 14:00 09/04/19 14:30 Temperature Pulse Rate 55 L 51 L 58 L Respiratory Rate 18 18 18 Blood Pressure Blood Pressure [Right Arm] 121/64 135/67 123/69 Pulse Oximetry 95 99 98 09/04/19 15:30 Temperature Pulse Rate 58 L Respiratory Rate 18 Blood Pressure Blood Pressure [Right Arm] 122/67 Pulse Oximetry 98 MDM - Nausea/Vomiting/Diarrhea <Stuart Cummings DO - Last Filed: 09/05/19 07:02> Lab Data Result diagrams: 09/04/19 10:54 09/04/19 10:54 Labs: Lab Results 09/04/19 09/04/19 09/04/19 Range/Units 10:54 10:54 10:54 WBC 14.1 H (4.5-11.0) X10^3/uL RBC 3.78 L (4.5-5.9) X10^6/uL Hgb 10.9 L (13.5-17.5) g/dL Hct 32.8 L (41-53) % MCV 86.8 (80-100) fL MCH 28.9 (26-34) PG MCHC 33.3 (30-36) % RDW 15.3 H (11.6-14.8) % Plt Count 645 H (150-400) X10^3/uL Neut % (Auto) 89.8 H (50-75) % Lymph % (Auto) 5.8 L (25-40) % [place] % (Auto) 3.7 (3-14) % Eos % (Auto) 0.2 L (2-4) % Baso % (Auto) 0.5 (0-2) % Neut # (Auto) 37148 H (3268-4902) /uL Lymph # (Auto) 800 L (4744-0529) /uL [place] # (Auto) 500 (0-900) /uL Eos # (Auto) 0 (0-450) /uL Baso # (Auto) 100 (0-100) /uL PT 13.9 H (10.1-12.7) SECONDS INR 1.2 (0.9-1.3) APTT 31 (26.4-36.2) SECONDS Sodium 128 L (137-145) mmol/L Potassium 4.9 (3.4-5.1) mmol/L Chloride 92 L (98-107) mmol/L Carbon Dioxide 29 (22-32) mmol/L BUN 21 H (9-20) mg/dL Creatinine 0.60 L (0.66-1.25) mg/dL Estimated GFR > 60.0 (>60) mL/min BUN/Creatinine Ratio 35.0 H (6-22) Glucose 103 (80-110) mg/dL Calcium 9.2 (8.4-10.2) mg/dL Total Bilirubin 0.4 (0.2-1.3) mg/dL AST 38 (17-59) IU/L ALT 17 (<50) IU/L Alkaline Phosphatase 95 (38-126) U/L Total Protein 6.8 (6.3-8.2) g/dL Albumin 3.3 L (3.5-5.0) g/dL Globulin 3.5 (1.7-4.1) g/dL Albumin/Globulin Ratio 0.9 L (1.0-2.8) Urine Dip Bedside Urine Glucose Negative Bedside Urine Bilirubin - Negative Bedside Urine Ketone +/- 5 Urine Specific [place] 1.020 Bedside Urine Occult Blood - Negative Bedside Urine pH 6.0 Bedside Urine Protein +/- 15 Bedside Urine Urobilinogen - Negative Bedside Urine Nitrite - Negative Bedside Urine Leukocytes - Negative Esterase <Hernandez IrelandDO - Last Filed: 09/04/19 15:58> Lab Data Labs: Lab Results 09/04/19 09/04/19 09/04/19 Range/Units 10:54 10:54 10:54 WBC 14.1 H (4.5-11.0) X10^3/uL RBC 3.78 L (4.5-5.9) X10^6/uL Hgb 10.9 L (13.5-17.5) g/dL Hct 32.8 L (41-53) % MCV 86.8 (80-100) fL MCH 28.9 (26-34) PG MCHC 33.3 (30-36) % RDW 15.3 H (11.6-14.8) % Plt Count 645 H (150-400) X10^3/uL Neut % (Auto) 89.8 H (50-75) % Lymph % (Auto) 5.8 L (25-40) % [place] % (Auto) 3.7 (3-14) % Eos % (Auto) 0.2 L (2-4) % Baso % (Auto) 0.5 (0-2) % Neut # (Auto) 26075 H (5140-5531) /uL Lymph # (Auto) 800 L (3554-3840) /uL [place] # (Auto) 500 (0-900) /uL Eos # (Auto) 0 (0-450) /uL Baso # (Auto) 100 (0-100) /uL PT 13.9 H (10.1-12.7) SECONDS INR 1.2 (0.9-1.3) APTT 31 (26.4-36.2) SECONDS Sodium 128 L (137-145) mmol/L Potassium 4.9 (3.4-5.1) mmol/L Chloride 92 L (98-107) mmol/L Carbon Dioxide 29 (22-32) mmol/L BUN 21 H (9-20) mg/dL Creatinine 0.60 L (0.66-1.25) mg/dL Estimated GFR > 60.0 (>60) mL/min BUN/Creatinine Ratio 35.0 H (6-22) Glucose 103 (80-110) mg/dL Calcium 9.2 (8.4-10.2) mg/dL Total Bilirubin 0.4 (0.2-1.3) mg/dL AST 38 (17-59) IU/L ALT 17 (<50) IU/L Alkaline Phosphatase 95 (38-126) U/L Total Protein 6.8 (6.3-8.2) g/dL Albumin 3.3 L (3.5-5.0) g/dL Globulin 3.5 (1.7-4.1) g/dL Albumin/Globulin Ratio 0.9 L (1.0-2.8) Urine Dip Bedside Urine Glucose Negative Bedside Urine Bilirubin - Negative Bedside Urine Ketone +/- 5 Urine Specific [place] 1.020 Bedside Urine Occult Blood - Negative Bedside Urine pH 6.0 Bedside Urine Protein +/- 15 Bedside Urine Urobilinogen - Negative Bedside Urine Nitrite - Negative Bedside Urine Leukocytes - Negative Esterase MDM Narrative Medical decision making narrative: Dr Ireland -received turned over from Dr. Cummings. Reviewed patient's history and physical. Review patient's labs. Perform my own examination. I did discuss the case with [facility]. We were able to find a bed for the patient at [facility]. Dr. Fournier is the accepting physician. Patient is stable for transport. Informed patient of the plan for transfer. He expressed understanding and agreement. Discharge Plan Departure Patient Disposition: [facility] Clinical Impression: Acute esophageal obstruction Discharge Date/Time: 09/04/19 18:00 Prescriptions: No Action oxycodone 10 mg tablet 10 mg PO Q6H RF: 0 (DME) oxygen Qty: 1 RF: 0 azithromycin [Zithromax Z-Rodrigo] 250 mg tablet See Rx Instructions PO .COMPLEX Qty: 6 RF: 0 benzonatate [Tessalon Perles] 100 mg capsule 100 mg PO BID-TID PRN (Reason: cough) Qty: 30 RF: 0 levothyroxine 200 mcg tablet 200 mcg PO QAM Qty: 90 RF: 3 levothyroxine 25 mcg tablet 25 mcg PO QAM Qty: 90 RF: 3 acyclovir 400 mg tablet 400 mg PO DAILY RF: 0 prednisolone acetate 0.12 % drops,suspension 1 drp EYE-LEFT DIRECTED RF: 0 hydroxyzine pamoate 25 mg capsule 1 tab PO SEE INSTRUCTIONS RF: 0 aspirin 81 mg Tablet,Delayed Release (Dr/Ec) 81 mg PO DAILY RF: 0 calcium carbonate [Calcium 600] 600 mg calcium (1,500 mg) Tablet 600 mg PO DAILY RF: 0 oxycodone [OxyContin] 20 mg Tablet,Oral Only,Ext.Rel.12 Hr 20 mg PO Q8H RF: 0 Multivitamin For Men 1 tab PO DAILY RF: 0 amlodipine [Norvasc] 5 mg tablet 5 mg PO DAILY RF: 0 pramipexole [Mirapex] 0.5 mg tablet 0.5 mg PO BEDTIME RF: 0 lisinopril 40 mg tablet 40 mg PO DAILY RF: 0 Referrals: Flor Medellin DO [Primary Care Provider] -
[2019-09-04 11:03] LABS: Add Manual Diff / Slide Review NO; Basophils Absolute Auto 100 /uL (0-100); Basophils Percent Auto 0.5 % (0-2); Eosinophils Absolute Auto 0 /uL (0-450); Eosinophils Percent Auto 0.2 % (2-4); Hematocrit 32.8 % (41-53); Hemoglobin 10.9 g/dL (13.5-17.5); Lymphocytes Absolute Auto 800 /uL (1100-4500); Lymphocytes Percent Auto 5.8 % (25-40); Mean Corpuscular HGB Conc 33.3 % (30-36); Mean Corpuscular Hemoglobin 28.9 PG (26-34); Mean Corpuscular Volume 86.8 fL (80-100); Monocytes Absolute Auto 500 /uL (0-900); Monocytes Percent Auto 3.7 % (3-14); Neutrophils Absolute Auto 12600 /uL (1500-7000); Neutrophils Percent Auto 89.8 % (50-75); Platelet Count 645 X10^3/uL (150-400); Red Blood Cell Count 3.78 X10^6/uL (4.5-5.9); Red Cell Distribution Width 15.3 % (11.6-14.8); White Blood Cell Count 14.1 X10^3/uL (4.5-11.0)
[2019-09-04 11:06] LABS: INR 1.2 (0.9-1.3); Prothrombin Time 13.9 SECONDS (10.1-12.7)
[2019-09-04 11:08] LABS: PTT Partial Thromboplastin Tim 31 SECONDS (26.4-36.2)
[2019-09-04] MEDS: SODIUM CHLORIDE 0.9% 1,000 ML 1000 ML IV (11:08)
[2019-09-04] MEDS: ONDANSETRON 4 MG/2 ML INJ IV (11:08)
[2019-09-04] MEDS: HYDROMORPHONE 1 MG INJ 0.5 MG IV ×2 (11:08→11:49)
[2019-09-04 11:13] LABS: Alanine Aminotransferase 17 IU/L (<50); Albumin 3.3 g/dL (3.5-5.0); Albumin Globulin Ratio 0.9 (1.0-2.8); Alkaline Phosphatase 95 U/L (38-126); Aspartate Aminotransferase 38 IU/L (17-59); Bilirubin Total 0.4 mg/dL (0.2-1.3); Blood Urea Nitrogen 21 mg/dL (9-20); Calcium 9.2 mg/dL (8.4-10.2); Carbon Dioxide 29 mmol/L (22-32); Chloride 92 mmol/L (98-107); Estimated Glomerular Filt Rate > 60.0 mL/min (>60); Globulin 3.5 g/dL (1.7-4.1); Glucose 103 mg/dL (80-110); HEMOLYSIS 34 (0-50); Potassium 4.9 mmol/L (3.4-5.1); Sodium 128 mmol/L (137-145); Total Protein 6.8 g/dL (6.3-8.2)
[2019-09-04] MEDS: SODIUM CHLORIDE 0.9% 1,000 ML 125 ML IV (12:17)
[2019-09-04] MEDS: HYDROMORPHONE 0.5 MG INJ IV ×5 (13:24→17:57)
== END 2019-09-04 18:00 | disposition short-term general hospital (02) ==
PROVIDERS: Emergency Medicine; Emergency Provider Emergency Medicine; PCP Family Medicine
DX: K22.2 Esophageal obstruction (principal); C78.00 Secondary malignant neoplasm of unspecified lung; R11.2 Nausea with vomiting, unspecified
CPT/HCPCS: 36415; 80053; 81003; 85025; 85610; 85730; 96361; 96374; 96375; 96376; 99284; J1170; J2405

== ENCOUNTER 2019-09-19 11:40 | Emergency (ER) | payer OTHER, SELFPAY ==
[2019-09-19 12:00] VITALS: BP 141/71; PULSE 76; RESP 18; TEMP 36.6; O2SAT 95
[2019-09-19 14:18] VITALS: BP 187/107; PULSE 90; RESP 24; O2SAT 95
[2019-09-19] MEDS: SODIUM CHLORIDE 0.9% 1,000 ML 1000 ML IV ×2 (14:22→15:51)
--- NOTE | 2019-09-19 14:57 | ED.WEAKNESS ---
HPI - Weakness General Chief complaint: Weakness Stated complaint: Feeling weak, needs IV fluids Time Seen by Provider: 09/19/19 13:55 Source: patient and family Mode of arrival: Wheelchair History of Present Illness HPI Narrative: HPI: The patient is a 64-year-old male with a history of esophageal cancer that has been stented. He also has extension of the malignancy by history into his stomach. He has recently had a G-tube placed for feeding and hydration. The patient came into the emergency department because he has been dehydrated trying to continue to eat and drink fluids because he does not want to years the feeding tube her does not like using the feeding tube. According to the patient's son they will not place him on a continuous feeding pump until he tolerates bolus feedings through the feeding tube. The patient periodically would cough and choke when trying to eat his regular foot. He misses the taste of the food. He has been extremely dehydrated and came in to be rehydrated because he has been extremely weak and tired with absolutely no energy. He denies any headache fever chills or sweats. He always has some degree of shortness of breath but no significant cough. He has had no chest pain. He has had nausea but no significant vomiting at this time or or diarrhea. He has had no urinary symptoms. The patient has glaucoma involving his left eye. And he has a history of hypertension but denies any diabetes mellitus. Related Data Home Medications Medication Instructions Recorded Confirmed prednisolone acetate 0.12 % eye 1 drp EYE-LEFT DIRECTED ml 08/27/18 09/18/19 drops,suspension Multivitamin For Men 1 tab PO DAILY 09/01/19 09/18/19 amlodipine [Norvasc] 5 mg PO DAILY 09/01/19 09/18/19 calcium carbonate [Calcium 600] 600 mg PO DAILY 09/01/19 09/18/19 lisinopril 40 mg PO DAILY 09/01/19 09/18/19 acyclovir 400 mg tablet 400 mg PO DAILY tab 09/18/19 09/18/19 fentanyl 100 mcg/hr transdermal 1 patch TRANSDERMAL Q72H 09/18/19 09/18/19 patch fentanyl 50 mcg/hr transdermal 1 patch TRANSDERMAL Q72H 09/18/19 09/18/19 patch lorazepam 0.5 mg tablet 0.5 mg PO DAILY PRN 09/18/19 09/18/19 naloxone 4 mg/actuation nasal spray 4 mg NASAL Q2M 09/18/19 09/18/19 ondansetron 4 mg disintegrating 4 mg PO Q8H 09/18/19 09/18/19 tablet oxycodone 10 mg tablet 20 mg PO Q6H tab 09/18/19 09/18/19 Previous Rx's Medication Instructions Recorded levothyroxine 200 mcg tablet 200 mcg PO QAM #90 tab 03/25/19 levothyroxine 25 mcg tablet 25 mcg PO QAM #90 tab 03/25/19 oxygen #1 ea 09/02/19 cefdinir 300 mg capsule 300 mg PO BID #30 cap 09/18/19 metronidazole 500 mg tablet 500 mg PO TID #30 tab 09/18/19 Allergies Allergy/AdvReac Type Severity Reaction Status Date / Time Penicillins AdvReac Severe NAUSEA/VOMI Verified 09/18/19 13:34 TING Review of Systems Review of Systems Narrative: His review of systems were all negative except for those mentioned in the history of present illness. 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 (Acute) Osteoarthritis (Chronic Unknown) Shoulder pain, right (Chronic Unknown) Surgical History History of arthroplasty of left knee (Acute 08/24/16) History of hip replacement (Deleted) History of tonsillectomy (Resolved Unknown) History of total right hip arthroplasty (Acute 12/26/95) Hx of elbow surgery (Acute) S/P left knee arthroscopy (Deleted Unknown) S/P revision of total knee (Deleted Unknown) Social History household members: none occupational status: previously employed Smoking Status: Former smoker Tobacco: How many years used: 34 quit status: has quit before alcohol intake: former (Last drink 1999 ) substance use type: does not use Smoking Status: Former smoker alcohol intake frequency: holidays/special occasions only Substance Use Type: does not use Exam Narrative Exam Narrative: PHYSICAL EXAM: CONSTITUTIONAL: Awake, Alert, Oriented, Coherent, Cooperative in NAD. The patient is quiet and appears chronically ill dehydrated gaunt with sunken features of his face and sunken eyes. HEAD: AT/NC EENT: PERRL, FROM of eyes, no discharge,. Oral mucosa is moist and pink, posterior pharynx is without erythema or exudate. NECK: Supple, no obvious JVD, Trachea is midline without stridor, SPINE: No gross deformity, no palpable tenderness of the cervical, thoracic, lumbar or sacral spine. No CVA tenderness. THORAX: No deformity, retractions, chest wall tenderness, increased AP chest diameter with rachitic ribs. LUNGS: Clear decreased symmetrical breath sounds without respiratory distress HEART: Normal heart tones, regular rhythm and rate without murmur. ABDOMEN: Soft, non-tender, normal bowel sounds without guarding, rebound, rigidity the patient has a feeding tube in the left upper quadrant of his abdomen. EXTREMITIES: No edema, cyanosis, deformity or tenderness. SKIN: No rash, bruising, petechiae or purpura. NEURO: Awake, alert, oriented, conversive, cranial nerves II-XII are symmetrical and normal, moves all 4 extremities and is ambulatory Initial Vital Signs Initial Vital Signs: Vital Signs Temperature 97.9 F 09/19/19 12:00 Pulse Rate 76 09/19/19 12:00 Respiratory Rate 18 09/19/19 12:00 Blood Pressure 141/71 H 09/19/19 12:00 Pulse Oximetry 95 09/19/19 12:00 Course Course Course Narrative: 1457 long discussion with the patient and family. The patient primarily is having difficulties tolerating the tube feedings. He primarily came into the emergency department for dehydration and fluid administration. The plan is to administer 1-2 L of normal saline for rehydration and have social service talk to the patient about the various options. The patient needs to be seen and evaluated by hospice. Orders Ordered: Discontinued Medications Sodium Chloride (Normal Saline 0.9%) 1,000 mls @ 1,000 mls/hr IV BOLUS ONE Stop: 09/19/19 15:14 Last Infusion: 09/19/19 15:50 Dose: 0 mls/hr Documented by: Admin: 09/19/19 14:22 Dose: 1,000 mls/hr Documented by: HILARY Sodium Chloride (Normal Saline 0.9%) 1,000 mls @ 1,000 mls/hr IV BOLUS ONE Stop: 09/19/19 16:10 Last Infusion: 09/19/19 17:16 Dose: 0 mls/hr Documented by: Admin: 09/19/19 15:51 Dose: 1,000 mls/hr Documented by: SHANNON Vital Signs Vital signs: Vital Signs - 8 hr 09/19/19 12:00 09/19/19 14:18 Temperature 97.9 F Pulse Rate 76 90 Respiratory Rate 18 24 Blood Pressure 141/71 H Blood Pressure [Left Arm] 187/107 H Pulse Oximetry 95 95 MDM - Weakness Lab Data Labs: Urine Dip Bedside Urine Glucose Negative Bedside Urine Bilirubin - Negative Bedside Urine Ketone - Negative Urine Specific [place] 1.015 Bedside Urine Occult Blood - Negative Bedside Urine pH 8.0 Bedside Urine Protein - Negative Bedside Urine Urobilinogen - Negative Bedside Urine Nitrite - Negative Bedside Urine Leukocytes - Negative Esterase Discharge Plan Departure Patient Disposition: Home Clinical Impression: Dehydration Esophageal cancer Qualifiers: Malignant neoplasm of esophagus location: unspecified location Qualified Code(s): C15.9 - Malignant neoplasm of esophagus, unspecified Discharge Date/Time: 09/19/19 17:22 Instructions: DI for Dehydration -- Adult Activity Restrictions/Additional Instructions: 1. Follow-up with your oncologist and the social service social services specialist in the oncology office for further assistance options and alternatives to care. 2. Follow-up with the home visiting nurse. 3. Use your feeding tube as previously prescribed. 4. Administer supplemental fluids to keep him hydrated through the feeding tube. 5 for taste and enjoyment only use small amounts of food in your mouth primarily for the taste and place everything else through your feeding tube. If you develop choking shortness of breath chest pain return to the emergency department. 6. Administer your medications through the feeding tube. Continue your medications as prescribed. Prescriptions: No Action oxycodone 10 mg tablet 20 mg PO Q6H RF: 0 (DME) oxygen Qty: 1 RF: 0 levothyroxine 200 mcg tablet 200 mcg PO QAM Qty: 90 RF: 3 levothyroxine 25 mcg tablet 25 mcg PO QAM Qty: 90 RF: 3 metronidazole 500 mg tablet 500 mg PO TID Qty: 30 RF: 0 cefdinir 300 mg capsule 300 mg PO BID Qty: 30 RF: 0 fentanyl 100 mcg/hr patch 72 hour 1 patch transdermal Q72H RF: 0 fentanyl 50 mcg/hr patch 72 hour 1 patch transdermal Q72H RF: 0 lorazepam 0.5 mg tablet 0.5 mg PO DAILY PRNRF: 0 acyclovir 400 mg tablet 400 mg PO DAILY RF: 0 ondansetron 4 mg tablet,disintegrating 4 mg PO Q8H RF: 0 Narcan 4 mg/actuation spray,non-aerosol 4 mg NASAL Q2M RF: 0 prednisolone acetate 0.12 % drops,suspension 1 drp EYE-LEFT DIRECTED RF: 0 calcium carbonate [Calcium 600] 600 mg calcium (1,500 mg) Tablet 600 mg PO DAILY RF: 0 Multivitamin For Men 1 tab PO DAILY RF: 0 amlodipine [Norvasc] 5 mg tablet 5 mg PO DAILY RF: 0 lisinopril 40 mg tablet 40 mg PO DAILY RF: 0 Referrals: Nav Jackson, [Primary Care Provider] -
--- NOTE | 2019-09-19 15:29 | CM.SWNOTE ---
BOTTLER Consult Note: This BOTTLER and ED BOTTLER Marcello Self requested to assess needs for this 64 yo male, resident of [place], presents to the ED w/family after feeling weak at home, wants IV fluid and bolus of artificial nutrition. According to chart review and discussion w/EDEL Marshall; Moise DC home from [facility] two days ago s/p esophageal stent placement and newly placed peg tube for nutrition. EDEL Marshall concerned that Moise and his family do not have approp. services i.e. home health (?) to manage new peg According to chart; Moise was recently diagnosed w/metastatic lung cancer and has f/u this upcoming week at [facility]. This BOTTLER and ED BOTTLER Marcello Self met w/Moise, Moise's son Moise Fuller P# [phone] home [phone] cell, and sister in law Sandoval in ED Rm 05, introduced BOTTLER role. According to our conversation: Moise Ferguson lives alone in [place], he lives on a property where other family members reside and feels he has good support. His son Moise Fuller lives in [place] w/his and family; he works multimedia coordinator in [employer] but has taken time off to be w/Moise Sr while admitted at [facility] and since getting back home. Moise Fuller thinks Home health was arranged for f/u 3.. but unsure what company was contacted, Moise Ferguson has [employer] and so [employer] coordinated DCP at [facility] P# [phone] Suggested Home health as a support, to include RN, PT, BOTTLER, HOME VISITS NURSE (?) and Moise Fuller felt this would be helpful to assist in medical oversight, medication management and BOTTLER for continued resource development. Asked Moise Ferguson and he admitted I just need to allow my son to feed me this BOTTLER took the invitation to talk further about peg placement and goals of care since diagnosis of metastatic lung cancer. Asked about the placement of the esophageal stent and peg; how long is it expected to be in place? Moise Ferguson states they are meant to be temporary and that again I get it now; I just need to let my son feed me (through the tube) and see what happens. Moise Ferguson admits he is a stubborn person and was resistant to his son's care at home but feels differently today. Moise Ferguson can complete ADLs indp at this time, he is not driving, but he does require son's assist w/peg management. Asked what Moise Ferguson what he saw for himself next ? Moise responded nothing Moise Ferguson became tearful and explained to those present that he knew his body is full of cancer and I want to be home. This BOTTLER grateful to be available at this moment to Moise and his family for support and encouragement to consider reaching out for help and assistance wherever available. Asked about DPOA and Moise Ferguson stated he wanted to name his son Moise his DPOA but this could not be done while Moise Ferguson was on strong narcotics at [facility]. Moise Ferguson hopeful to assign his son as legal DPOA soon, they prefer not to discuss further today but will f/u w/ staff in Oncology. This BOTTLER requests permission to step out of room w/son Moise and Moise agreeable and appreciative. With son Moise: Reviewed conversation in ED rm, son appreciative of the suggestion of home health nurse and BOTTLER, he has no agency preference but reminds this BOTTLER Moise Ferguson has [employer] coverage, Moise Ferguson was offered SNF upon DC from [facility] but refused and Moise explains his Dad doesn't want to live or in a SNF. Son Moise trying to take care of his Dad and admits it has been very challenging trying to take care of everything right now. Moise explains their family has endured many losses in the last few years which he admits is overwhelming. Moise is hopeful that the artificial nutrition might give his Dad enough strength to endure chemo if it is offered and/or recommended. Took the opportunity to share that it would be unlikely, in his Dad's current physical condition, that he would respond well to chemo if offered and son understood. He shared w/this BOTTLER that he felt it was important for him and his Dad to get more information from the Oncology team re: options before making any decisions on next steps. This BOTTLER agreed this was very reasonable. Moise further explains his Dad is struggling right now w/loss of independence, having increased amount of people in his home, and trying to process new diagnosis of metastatic cancer. His Dad is a former smoker, drinker, w/ h/o Heroin dependence but has been sober for quite some time. He knows his Dad would like to return to his normal ie diet, life, routine. This BOTTLER strongly encouraged Moise Fuller to get in touch with Engine Wiper Melvina Romero at the [facility] to review support, resources and discuss anything related to all summarized above, son Moise appreciative. LUPILLO Ybarra
[2019-09-19 16:10] VITALS: BP 161/97; PULSE 72
[2019-09-19 16:13] VITALS: O2SAT 98
--- NOTE | 2019-09-19 16:56 | CM.SWNOTE ---
Gave referral to [facility], requested HH RN, PT, TICKET SALES SUPERVISOR, [employer]YE[employer] STITCHER. Faxed packet, F2F signed by Dr Valencia. Updated Moise and family, updated Dr Valencia w/summary of conversation between this GOODYEAR STITCHER, GOODYEAR STITCHER Moise Armendariz and family. Dr Valencia hopeful that Moise will consider Hospice support soon as he feels this would be an appropriate service and plan of care at this time. This GOODYEAR STITCHER agreed and explained Moise and family would like to first have home health and f/u w/ Oncologist before making further decisions. LUPILLO Ybarra
[2019-09-19 17:19] VITALS: BP 168/92; PULSE 66; RESP 16; O2SAT 98
== END 2019-09-19 17:22 | disposition home or self-care (01) ==
PROVIDERS: Emergency Provider Emergency Medicine; PCP Family Medicine
DX: E86.0 Dehydration (principal); C15.9 Malignant neoplasm of esophagus, unspecified; I10 Essential (primary) hypertension
CPT/HCPCS: 81003; 96360; 96361; 99284

== ENCOUNTER → 2019-09-22 10:00 | Oncology outpatient (ONC) | payer OTHER, SELFPAY ==
--- NOTE | 2019-09-03 11:50 | ONC.MSW ---
Description: Initial Referral Navigation T/C Reason for Referral: Lung Cancer Activity: Pt's PCP called and referred pt for an urgent initial appt. Pt was seen on 09/01 in the ED, presenting concerns of fatigue, shortness of breath, cough and at times, coughing up blood. CT imaging showed bilateral patchy pneumonia pattern w/ mass-like appearance in the left lower lobe, with several lung nodules also noted. PCP is f/u with obtaining home O2 for pt. Dr. Patterson was called and consulted, he had recommended hospitalization overnight, biopsy and Oncology referral. Pt actually chose to go home as opposed to remaining in the hospital. His primary contact lens molder noted in the chard is his sister, Robby Lynn, he's single and retired, with a prior hx of cancer 14-years ago in his hard palate that he had treatment for. Called pt and confirmed that we are processing his referral and will be contacting him shortly with a time for urgent initial consult visit. He expressed no immediate needs at this time. Will plan to meet with him f/f when he comes for his first appt. *Appt was scheduled for 09/09 at 2:00pm, 1:40pm check-in time.
--- NOTE | 2019-09-03 13:25 | PC.NURSE ---
Okay to give 2L NS over 3 hours, instead of 4 per Ros HOLLINGSWORTH/Bassam Ramachandran NP.
[2019-09-03] MEDS: SODIUM CHLORIDE 0.9% 1,000 ML 750 ML IV (13:35)
--- NOTE | 2019-09-03 13:35 | PC.NURSE ---
Fluids to run over 3 hours per Discussion with panel fitter Roshni Quintanilla.
--- NOTE | 2019-09-03 13:53 | PC.NURSE ---
Patient complaining of nausea with sips of water or medications. FMA notified and verbal telephone order from Bassam Ramachandran received for 8mg IV zofran. Orders placed into computer and oncology pharmacist made aware.
[2019-09-03] MEDS: ONDANSETRON 8 MG in SODIUM CHLORIDE 0.9% 50 ML 216 ML IV (13:59)
[2019-09-03] MEDS: SODIUM CHLORIDE 0.9% 1,000 ML 700 ML IV (15:02)
--- NOTE | 2019-09-03 15:21 | PC.NURSE ---
BNP 1510 from ED visit 09/01/19. This RN called Will [place] RELOCATION COUNSELOR about this and pt receiving 2 L NS. Order changed to administer 1500ml NS then dc fluids. pt remains on 2L O2/NC with sat 94%.
--- NOTE | 2019-09-03 15:52 | PC.NURSE ---
IV FLUIDS Patient received a total of 1500ml of NS. After discussing with MD, amount of fluids was reduced from 2L to 1500ml. Lung sounds after infusion were diminished in LLL, fine crackles in RLL. Patient left clinic with family member via wheelchair.
--- NOTE | 2019-09-17 12:25 | ONC.SCHED ---
Left msg. for sister on auth to try to get patient scheduled for Saturday @ 2PM. Urgent referral
--- NOTE | 2019-09-22 10:23 | P.CONONC_ITS ---
History of Present Illness - Data of Consult Patient: new to practice Consult date: 09/22/19 Requesting Physician: Flor Medellin DO Primary Care Provider: Flor Medellin DO - Consult Narrative Reason for consult: Metastatic mid esophageal squamous cell carcinoma Narrative: Moise Diop is a 64 year old male. He had history of back-of-the throat cancer about in 2004, and status post radaition therapy only at [facility]. About in 06/2029 and 07/2019, he developed difficulty swallowing. He was not able to keep things down. Later, he coughed up some blood, but he did not talked with anybody. On 09/01/2019, he felt so weak that he decided to go to ER at . CT chest PE protocol on 09/01/2019 showed no pulmonary embolism, but showed severe emphysematous change, multifocal malignancy with a confluent cavity lung mass invading directly into the left hilum and mediastinum, multiple lung base nodules, patchy airspace disease confluent at the lung base and small exudate of left pleural effusion posteriorly. Patient subsequently was referred to [facility]. Of 09/04/2019, CT head showed no intracranial abnormality. No evidence of intracranial metastatic disease. On 09/05/2019, patient underwent CT chest, abdomen and pelvis. There are bilateral lower lobe pneumonic infiltrate/atelectasis with bilateral contiguous pleural effusions, extensive tumor mass in the mid mediastinum extending into the right hilum and contiguous with a necrotic portion of the tumor in the left lower lobe contiguous with the descending thoracic aorta. 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 There are bilateral metastatic nodules. There are subtle patchy subsegmental infiltrates within the lungs. Enlarged heart was also noted. There are tiny hypoattenuating lesions in the liver was too small to characterize. Abdominal pelvic ascites noted. Lymphadenopathy in the gastric hepatic ligament and eric hepaticus. Indistinct borders in the structures in the upper abdomen possibly representing an infiltrating process. Negative CT scan of the pelvis. On 09/05/2019, Dr. Liudmila lara performed EGD. The endoscopy showed large fistula at approximately 30 minutes cm from the incisors, likely from the hilar lung mass, congested erythematous, nodular mucosa in the esophagus, distal to the fistula. Reflux esophagitis was noted. Biopsy from mid esophagus showed invasive, moderately differentiated squamous cell carcinoma arising in a background containing squamous cell carcinoma in-situ. PD-L1 (22C3) was negat magnolia for expression. On 09/06/2019, patient underwent flexible esophageal gastroduodenoscopy, placement of a PEG tube, esophageal stent placement and flexible bronchoscopy by Dr. Abdifatah Whyte. On 09/14/2019, patient underwent PET scan. The PET scan showed large, relatively poorly defined mass involving the mid portion of the esophagus, the mediastinum, and extending toward the left pulmonary hilum and into the medial left lower lung lobe consistent with malignancy. There is additional hypermetabolic activity in the distal esophagus. There are hypermetabolic lung nodules consistent with metastasis. There are hypermetabolic left hilar, mediastinal, and left low neck lymph nodes consistent with metastasis. There is a hypermetabolic nodule or lymph node in the left upper quadrant of the abdomen consistent with metastasis. There is somewhat amorphous hypermetabolic activity around the right hip prosthesis which could be infection inflammation or tumor. There is a hyper metabolic lucent lesion on the right side of the mandible which is favored to be odontogenic, less likely metastatic. There is a hypermetabolic lesion in the left T3 transverse process consistent with metastasis. There is hypermetabolic activity localizing to the right adrenal gland which could be metastatic. Bilateral pleural effusions, and diffuse body wall edema. Patient currently is using feeding tube. Patient reports no abdominal pain no nausea at the present time. Patient admitted using CBD THC tincture. Patient is in wheelchair when she comes to the clinic today. Patient said that he can only walk to the bathroom. He was unsteady on his feet. Patient continues to have dull chest pain, constant, 7 to 8/10 in severity at its worst. Patient is using oxycodone 20 mg every 3 hours and fentanyl patch 150 mcg every 3 days for pain control. He denies headache. Denies any bone pain. Patient currently is using oxygen 2 L nasal cannula and with oxygen he denies any shortness breath. Patient currently is having constipation. Patient reports pain?: Yes Home Medications and Allergies Home Medications Medication Instructions Recorded Confirmed Type prednisolone acetate 0.12 % eye 1 drp EYE-LEFT DIRECTED ml 08/27/18 09/22/19 History drops,suspension levothyroxine 200 mcg tablet 200 mcg PO QAM #90 tab 03/25/19 09/22/19 Rx levothyroxine 25 mcg tablet 25 mcg PO QAM #90 tab 03/25/19 09/22/19 Rx Multivitamin For Men 1 tab PO DAILY 09/01/19 09/22/19 History amlodipine [Norvasc] 5 mg PO DAILY 09/01/19 09/22/19 History calcium carbonate [Calcium 600] 600 mg PO DAILY 09/01/19 09/22/19 History lisinopril 40 mg PO DAILY 09/01/19 09/22/19 History oxygen #1 ea 09/02/19 09/22/19 Rx acyclovir 400 mg tablet 400 mg PO DAILY tab 09/18/19 09/22/19 History cefdinir 300 mg capsule 300 mg PO BID #30 cap 09/18/19 09/22/19 Rx fentanyl 100 mcg/hr transdermal 1 patch TRANSDERMAL Q72H 09/18/19 09/22/19 History patch fentanyl 50 mcg/hr transdermal 1 patch TRANSDERMAL Q72H 09/18/19 09/22/19 History patch lorazepam 0.5 mg tablet 0.5 mg PO PRN PRN 09/18/19 09/22/19 History metronidazole 500 mg tablet 500 mg PO TID #30 tab 09/18/19 09/22/19 Rx naloxone 4 mg/actuation nasal spray 4 mg NASAL Q2M 09/18/19 09/22/19 History ondansetron 4 mg disintegrating 4 mg PO Q8H 09/18/19 09/22/19 History tablet oxycodone 10 mg tablet 20 mg PO Q6H tab 09/18/19 09/22/19 History Allergies Allergy/AdvReac Type Severity Reaction Status Date / Time Penicillins AdvReac Severe NAUSEA/VOMI Verified 09/18/19 13:34 TING Medical History - Medical, Surgical, Family History Medical History: Medical History (Last Updated 09/22/19 @ 10:41 by Chelsea Andrade MD) Alcohol abuse, in remission Anxiety Arthritis Former smoker GERD (gastroesophageal reflux disease) Onset Date: Unknown Hepatitis C Onset Date: 1988 Hyperlipemia Onset Date: Unknown Hypertension Onset Date: Unknown Hypothyroidism Onset Date: Unknown Knee pain Osteoarthritis Onset Date: Unknown Shoulder pain, right Onset Date: Unknown Throat cancer Onset Date: ~2005 Surgical History: Surgical History (Last Reviewed 09/20/19 @ 09:14 by Canelo Valencia MD) History of arthroplasty of left knee Onset Date: 08/24/16 History of hip replacement History of tonsillectomy Onset Date: Unknown History of total right hip arthroplasty Onset Date: 12/26/95 Hx of elbow surgery S/P left knee arthroscopy Onset Date: Unknown S/P revision of total knee Onset Date: Unknown Family History: Family History (Last Updated 09/22/19 @ 10:42 by Chelsea Andrade MD) Mother Cancer - Social History Smoking Status: Former smoker Substance Use Type: does not use Alcohol Intake: former Review of Systems All systems PM: reviewed and no additional remarkable complaints except as stated (the following:) Constitutional: weight loss, poor state of general health, decreased exercise tolerance Cardiovascular: chest pain Respiratory: shortness of breath, exercise intolerance, cough, hemoptysis Gastrointestinal: change in appetite, dysphagia, nausea, vomiting, hematemesis, constipation Exam Vital signs: 09/22/19 17:35 Last Vital Signs Temp 97.5 F L 09/22/19 10:31 Pulse 78 09/22/19 10:31 Resp 16 09/22/19 10:31 BP 81/43 L 09/22/19 10:31 Narrative: ECOG 1 Gen: WD, thin, pleasant and cooperative, accompanied by his son. HEENT: NCAT, EOMI, PERRLA, anicteric sclera. Neck: Supple, No palpable thyromegaly or lymphadenopathy. Respiratory: coarse, no wheezes. No JVD Cardiovascular: RRR, S1 and S2 normal, no M/G/R. Abdomen: Soft, no palpable organomegaly. PEG tube noted. Extremities: No LE pitting edema. Lymphatic: no palpable lymph nodes in the neck, axillae, or groins. Neurological: AOx3, CN II-XII grossly intact. No focal motor or sensory deficit. Psychiatric: Normal affect, appropriate mood, no depression, no anxiety. Results - Labs Laboratory Last Values WBC 10.9 X10^3/uL (4.5-11.0) 09/22/19 11:28 RBC 3.43 X10^6/uL (4.5-5.9) L 09/22/19 11:28 Hgb 10.0 g/dL (13.5-17.5) L 09/22/19 11:28 Hct 30.5 % (41-53) L 09/22/19 11:28 MCV 89.0 fL (80-100) 09/22/19 11:28 MCH 29.3 PG (26-34) 09/22/19 11:28 MCHC 32.9 % (30-36) 09/22/19 11:28 RDW 18.2 % (11.6-14.8) H 09/22/19 11:28 Plt Count 452 X10^3/uL (150-400) H 09/22/19 11:28 Neut % (Auto) 84.9 % (50-75) H 09/22/19 11:28 Lymph % (Auto) 4.8 % (25-40) L 09/22/19 11:28 Weston % (Auto) 9.6 % (3-14) 09/22/19 11:28 Eos % (Auto) 0.3 % (2-4) L 09/22/19 11:28 Baso % (Auto) 0.4 % (0-2) 09/22/19 11:28 Neut # (Auto) 9300 /uL (2350-9730) H 09/22/19 11:28 Lymph # (Auto) 500 /uL (8035-6930) L 09/22/19 11:28 Weston # (Auto) 1000 /uL (0-900) H 09/22/19 11:28 Eos # (Auto) 0 /uL (0-450) 09/22/19 11:28 Baso # (Auto) 0 /uL (0-100) 09/22/19 11:28 Sodium 130 mmol/L (137-145) L 09/22/19 11:28 Potassium 4.3 mmol/L (3.4-5.1) 09/22/19 11:28 Chloride 91 mmol/L (98-107) L 09/22/19 11:28 Carbon Dioxide 37 mmol/L (22-32) H 09/22/19 11:28 BUN 20 mg/dL (9-20) 09/22/19 11:28 Creatinine 0.54 mg/dL (0.66-1.25) L 09/22/19 11:28 Estimated GFR > 60.0 mL/min (>60) 09/22/19 11:28 BUN/Creatinine Ratio 37.0 (6-22) H 09/22/19 11:28 Glucose 108 mg/dL (80-110) 09/22/19 11:28 Calcium 9.0 mg/dL (8.4-10.2) 09/22/19 11:28 Total Bilirubin 0.2 mg/dL (0.2-1.3) 09/22/19 11:28 AST 26 IU/L (17-59) 09/22/19 11:28 ALT 12 IU/L (<50) 09/22/19 11:28 Alkaline Phosphatase 62 U/L (38-126) 09/22/19 11:28 Total Protein 6.5 g/dL (6.3-8.2) 09/22/19 11:28 Albumin 3.1 g/dL (3.5-5.0) L 09/22/19 11:28 Globulin 3.4 g/dL (1.7-4.1) 09/22/19 11:28 Albumin/Globulin Ratio 0.9 (1.0-2.8) L 09/22/19 11:28 - Imaging Additional studies: Procedures Removal of Synthetic Substitute from Left Knee Joint, Open Approach (08/11/15) Replacement of Left Knee Joint with Synthetic Substitute, Cemented, Open Approach (08/11/15) Assessment and Plan (1) Esophageal cancer Overview: 64-year-old gentleman with previous history of throat cancer status post radiation therapy in 2004. In early 2019, he presented with difficulty swallowing and hemoptysis. He was diagnosed with metastatic mid esophageal s quamous cell carcinoma with evidence of metastasis to mediastinum, lungs, upper abdomen lymph nodes, bones, possibly adrenal gland, and formation of a large esophageal-lung metastasis. Diagnosis was made with endoscopy with biopsy on 09/10/2019. PD-L1 expression was negative (22C3). Patient had PEG tube placement. Patient has a performance score about 1-2. Assessment: Patient's son was in the room. His other family members were on facebook. First of all, I explained to the patient and his son about the squamous cell carcinoma of the esophagus. I told them that he has a stage IV advanced squamous cell carcinoma of the esophagus that has spread to other parts of the body. I talked with them that for metastatic esophageal cancer, it is considered incurable. The goal of the therapy is to prolong the progression while at the same time to preserve the quality as best as we can. I talked with them that the options include palliative/hospice care versus palliative systemic chemotherapy. It is difficult to predict how long he is going to live and how well he is going to respond to the treatment. Patient said that he himself would like to try the chemotherapy which I agree. I talked with him that after usually a couple of cycles, we will re-evaluate with scans most likely PET scan to see the response to the treatment. In addition we will be able to tell whether he is able to laverne erate the chemotherapy or not. Patient's voiced understanding. I talked with them that I will refer the patient to our surgeon for port placement. I will see the patient in about 2 weeks to initiate the chemotherapy. Today patient's blood pressure is low in the 80s/40s. I will proceed with 1 L of intravenous fluid. Plan: NS 1000 cc iv today CBC, CMP Pathology sample for MMR and HER2 testing, and NTRK fusion Referral to surgery for port placement RTC in 2 weeks for [id number]
[2019-09-22 10:31] VITALS: BP 81/43; PULSE 78; RESP 16; TEMP 36.4
[2019-09-22 11:41] LABS: Add Manual Diff / Slide Review NO; Basophils Absolute Auto 0 /uL (0-100); Basophils Percent Auto 0.4 % (0-2); Eosinophils Absolute Auto 0 /uL (0-450); Eosinophils Percent Auto 0.3 % (2-4); Hematocrit 30.5 % (41-53); Lymphocytes Absolute Auto 500 /uL (1100-4500); Lymphocytes Percent Auto 4.8 % (25-40); Mean Corpuscular HGB Conc 32.9 % (30-36); Mean Corpuscular Hemoglobin 29.3 PG (26-34); Monocytes Absolute Auto 1000 /uL (0-900); Monocytes Percent Auto 9.6 % (3-14); Neutrophils Absolute Auto 9300 /uL (1500-7000); Neutrophils Percent Auto 84.9 % (50-75); Platelet Count 452 X10^3/uL (150-400); Red Blood Cell Count 3.43 X10^6/uL (4.5-5.9); Red Cell Distribution Width 18.2 % (11.6-14.8); White Blood Cell Count 10.9 X10^3/uL (4.5-11.0)
[2019-09-22 11:53] LABS: Alanine Aminotransferase 12 IU/L (<50); Albumin 3.1 g/dL (3.5-5.0); Albumin Globulin Ratio 0.9 (1.0-2.8); Alkaline Phosphatase 62 U/L (38-126); Aspartate Aminotransferase 26 IU/L (17-59); Bilirubin Total 0.2 mg/dL (0.2-1.3); Blood Urea Nitrogen 20 mg/dL (9-20); Carbon Dioxide 37 mmol/L (22-32); Chloride 91 mmol/L (98-107); Estimated Glomerular Filt Rate > 60.0 mL/min (>60); Globulin 3.4 g/dL (1.7-4.1); Glucose 108 mg/dL (80-110); HEMOLYSIS < 15 (0-50); Potassium 4.3 mmol/L (3.4-5.1); Sodium 130 mmol/L (137-145); Total Protein 6.5 g/dL (6.3-8.2)
[2019-09-22] MEDS: SODIUM CHLORIDE 0.9% 1,000 ML 1000 ML IV (12:00)
--- NOTE | 2019-09-22 14:04 | ONC.SCHED ---
Per Melvina Dyer, hold off on scheduling anything for this patient until we hear back from the family.
--- NOTE | 2019-09-23 13:55 | ONC.MSW ---
Late Entry: Visit 09/22/19 Description: Met with pt's family after the provider visit to discuss goals of care and concerns/questions that they had re: whether or not pt should pursue treatment or not. Discussed all options, including treatment w/Home Health in place, palliative care, hospice, as well as planning for in home caregiving needs. Pt/family talked after this meeting, pt agreed that he wanted to move forward with a Hospice informational visit, and that he really was not interested in doing treatment anyway. [employer] faxed pt's clinicals to Hospice to facilitate the appt. Plan: Hold referrals for port placement and pre-authorizing medications until family has the Hospice info and makes a decision about services and next steps.
--- NOTE | 2019-10-12 10:34 | ONC.MSW ---
*Sent bereavement card.
== END ==
PROVIDERS: PCP Family Medicine; Referring Provider Family Medicine; Visit Provider Internal Medicine Hematology & Oncology
DX: C15.4 Malignant neoplasm of middle third of esophagus (principal); C78.1 Secondary malignant neoplasm of mediastinum; C78.02 Secondary malignant neoplasm of left lung; C77.2 Secondary and unspecified malignant neoplasm of intra-abdominal lymph nodes; C79.51 Secondary malignant neoplasm of bone; I95.9 Hypotension, unspecified
CPT/HCPCS: 36415; 80053; 85025; 96360; 96361; 96374; 96375; 99204; 99214; J2405